=== PATIENT | male | born 1990 | race Caucasian/White ===

== ENCOUNTER 2016-05-25 23:17 | Inpatient (IN) | payer MEDICARE, OTHER ==
[~2016-05-25 23:17] MED LIST: NORC5TAB PO; SENO8.6T10 PO; [UNRECOGNIZED DRUG - REMARK]
[2016-05-26 01:46] LABS: BASO # 0.1 K/mm3 (0.0-0.2); EOS % 0.4 % (0.0-3.0); LARGE UNSTAINED CELL # 0.2 K/mm3 (0.0-0.4); LARGE UNSTAINED CELL % 1.8 % (0.0-4.0); LYMPH # 1.5 K/mm3 (1.5-6.5); LYMPH % 9.8 % (24.0-44.0); MEAN CORPUSCULAR HEMOGLOBIN 27.7 pg (27.0-33.0); MEAN CORPUSCULAR HGB CONC 33.9 g/dl (32.0-36.5); MEAN CORPUSCULAR VOLUME 81.7 fl (80.0-96.0); MONO # 1.2 K/mm3 (0.0-0.8); MONO % 8.7 % (0.0-5.0); NEUTROPHILS # 10.5 K/mm3 (1.8-7.7); NEUTROPHILS % 78.3 % (36.0-66.0); PLATELET COUNT, AUTOMATED 248 k/mm3 (150-450); RED CELL DISTRIBUTION WIDTH 14.1 % (11.5-14.5); WHITE BLOOD COUNT 13.4 K/mm3 (4.0-10.0)
[2016-05-26] MEDS ORDERED: KETOROLAC 30 MG/ML VIAL (J1885) As Ordered ONE (01:49)
[2016-05-26] MEDS ORDERED: ONDANSETRON 4MG/2ML VIAL (J2405) As Ordered ONE (01:49)
[2016-05-26 01:59] LABS: ALBUMIN 3.9 GM/DL (3.2-5.2); ALBUMIN/GLOBULIN RATIO 0.95 (1.00-1.93); ALKALINE PHOSPHATASE 52 U/L (45-117); ALT/SGPT 47 U/L (12-78); AMYLASE 33 U/L (25-115); ANION GAP 10 MEQ/L (8-16); AST/SGOT 25 U/L (15-37); BILIRUBIN,DIRECT 0.2 MG/DL (0.0-0.2); BILIRUBIN,TOTAL 0.9 MG/DL (0.2-1.0); BLOOD UREA NITROGEN 8 MG/DL (7-18); CALCIUM LEVEL 8.7 MG/DL (8.5-10.1); CARBON DIOXIDE LEVEL 23 MEQ/L (21-32); CHLORIDE LEVEL 106 MEQ/L (98-107); CREATININE FOR GFR 0.64 MG/DL (0.70-1.30); GLOMERULAR FILTRATION RATE > 60.0 (>60); GLUCOSE, FASTING 109 MG/DL (70-105); POTASSIUM SERUM 3.7 MEQ/L (3.5-5.1); SODIUM LEVEL 139 MEQ/L (136-145)
[2016-05-26] MEDS ORDERED: ISOVUE-370 76% 100ML VIAL (Q9967) As Ordered ONE (03:37)
--- NOTE | 2016-05-26 04:50 | REPUSA ---
CLINICAL HISTORY: Abdominal pain. TECHNIQUE: Multiple axial, sagittal and coronal CT images were obtained through the abdomen and pelvi s after administration of intravenous contrast material. COMMENTS: Comparison is made to the prior exam performed on 04/25/2016. Again are noted the changes from prior partial colectomy. Unremarkable left lower quadrant colostomy. Interval appearance of significant diffuse skin thickening to the right lateral aspect of the colosto my. Adjacent subcutaneous fat stranding with multiple subcutaneous abnormal loculated fluid collectio ns. The largest measures 7.2x3.1 cm. Findings are suggestive of multifocal seromas/abscess formation. This needs clinical evaluation and further assessment. The liver is mildly enlarge or decrease attenuation without mass or defect. There is no intra or extr ahepatic biliary ductal dilatation. The spleen is normal. The gallbladder is within normal limits. Th e pancreas is of normal contour and attenuation characteristics. There is no evidence of adrenal mass . Both kidneys demonstrate prompt and equal nephrograms. The kidneys are normal in size, shape and conf iguration. There is no evidence of renal or ureteral mass. No renal or ureteral calculi are identifie d. There is no hydroureter or hydronephrosis. No evidence for appendicitis. There is no bowel wall thickening. No evidence for small or large daniela l obstruction. There is no evidence of abdominal ascites or lymphadenopathy. There is no evidence of intrinsic or extrinsic bladder mass. There is no pelvic ascites or lymphadeno micheal. Images of the lung bases show no evidence of pleural or parenchymal mass. There are no pleural effusi ons. The bony structures are free of lytic or blastic lesions. Multilevel degenerative changes are seen in volving the thoracolumbar spine. Scattered calcifications are seen involving the aorta and major bran ches compatible with atherosclerosis. Absent right femur. IMPRESSION: No change in hepatomegaly with fatty liver infiltration. Again are noted the changes from prior partial colectomy. Unremarkable left lower quadrant colostomy. Interval appearance of diffuse subcutaneous fat stranding of the anterior abdominal wall suspicious f or cellulitis. Multiple subcutaneous fluid collections are adjacent in the subcutaneous fat of the anterior abdomina l wall to the right lateral aspect of the left colostomy opening. Findings may represent seromas vers us multifocal abscesses. Smaller collections are noted to the left lateral aspect of the colostomy. T he above-described collections are limited to the subcutaneous fat of the anterior abdominal without intra-abdominal extension. Findings were not present on prior exam. Thank you for your kind referral of this patient.
[2016-05-26] MEDS ORDERED: cefTRIAXone SOD 1 GM VIAL (J0696) As Ordered ONE (05:40)
[2016-05-26] MEDS ORDERED: MORPHINE 2 MG/ML 1ML SYRINGE IV PRN (09:00)
[2016-05-26] MEDS ORDERED: MORPHINE 4 MG/ML 1ML SYRINGE IV PRN (09:00)
[2016-05-26] MEDS ORDERED: zolPIDEM TARTRATE 10MG TAB PO PRN (09:00)
[2016-05-26] MEDS ORDERED: PERCOCET 5MG/325MG TAB PO PRN ×2 (09:00)
[2016-05-26] MEDS ORDERED: PERCOCET 5MG/325MG TAB As Ordered ONE (11:19)
[2016-05-26] MEDS: LR 1,000 ML IV SCH ×3 (11:25→21:34)
[2016-05-26 11:54] VITALS: BP 101/55
[2016-05-26] MEDS ORDERED: CIPROFLOXACIN 400 MG in APPROPRIATE DILUENT 1 EA IV SCH (13:00)
[2016-05-26] MEDS ORDERED: PANTOPRAZOLE 40MG TAB (PROTONIX) As Ordered ONE (13:08)
[2016-05-26] MEDS ORDERED: CIPROFLOXACIN/D5W 400 MG/200 ML BAG (J0744) As Ordered ONE (13:09)
[2016-05-26] MEDS: PANTOPRAZOLE 40MG TAB (PROTONIX) PO SCH (13:10)
--- NOTE | 2016-05-26 13:45 | EDDOCDS ---
Physician Documentation [facility] Name: Crispin Winters Age: 26 yrs Sex: Male : 1990 Arrival Date: 05/25/2016 Time: 23:17 Bed Admit Hold Private MD: Franklin Lucas Disposition: 05/26/16 08:33 Hospitalization ordered by Konstantin Azar for Inpatient Admission. Preliminary diagnosis is Cellulitis of abdominal wall - with multiple abscesses. - Bed requested for 4 Ferney. - Status is Inpatient Admission. pml - Condition is Stable. - Problem is an acute exacerbation. - Symptoms have improved. Historical: - Allergies: no known allergies; - Home Meds: 1. none - PMHx: none; - PSHx: legs amputated; Hernia repair; right arm surgery; Colostomy Construction; - Social history: Smoking status: Patient states was never smoker of tobacco. No barriers to communication noted, The patient speaks fluent Georgian. - Family history: Not pertinent, No immediate family members are acutely ill. - : The pt / caregiver states he / she is not on anticoagulants. Home medication list is obtained from the patient. - Exposure Risk Screening:: None identified. Vital Signs: 05/25 23:18 BP 102 / 73; Pulse 135; Resp 18 S; Temp 100.6(O); Pulse Ox 92% on R/A; Weight 106.59 kg gr2 / 234.99 lbs (R); Pain 4/10; 05/26 02:52 Pain 4/10; mlc 04:51 BP 116 / 60; Pulse 102; Resp 18; Temp 99.0; Pulse Ox 96% on R/A; Pain 5/10; mlc 09:25 BP 118 / 63; Pulse 92; Resp 18; Temp 99.1(TE); Pulse Ox 98% on R/A; Pain 5/10; ct3 MDM: 01:39 NS 0.9% 1000 ml IV at bolus once ordered. mm11 01:39 Ondansetron 4 mg IVP once ordered. mm11 01:39 ketorolac 30 mg IVP once ordered. mm11 01:39 IV Saline Lock ordered. mm11 01:39 Undress patient appropriately for examination ordered. mm11 01:40 -Blood Culture Ordered. EDMS 01:40 Amylase Ordered. EDMS 01:40 Basic Metabolic Profile Ordered. EDMS 01:40 CBC with Diff Ordered. EDMS 01:40 Lipase Ordered. EDMS 01:40 Liver Profile Ordered. EDMS 01:40 Lactic Acid (Melara tube on ice) Ordered. EDMS 01:40 NOTHING BY MOUTH+DIET ordered. EDMS 01:45 C REACTIVE PROTEIN QUANTITATIV Ordered. EDMS 02:38 Basic Metabolic Profile Reviewed. mm11 02:38 CBC with Diff Reviewed. mm11 02:38 Lipase Reviewed. mm11 02:38 Liver Profile Reviewed. mm11 02:38 C REACTIVE PROTEIN QUANTITATIV Reviewed. mm11 02:38 Amylase Reviewed. mm11 02:39 CT ABD & PELVIS: IV Contrast Only Ordered. EDMS 03:18 Lactic Acid (Melara tube on ice) Reviewed. mm11 04:56 Financial registration complete. hs2 05:09 CT ABD & PELVIS: IV Contrast Only Reviewed. mm11 05:25 cefTRIAXone 1 grams IVPB once over 30 mins; dilute in 50mL of NS or D5W ordered. mm11 05:26 NS 0.9% 1000 ml IV at 100 mL/hr continuous ordered. mm11 06:41 [facility] Payment Agreement was scanned into [employer] and attached to record. gjb 08:34 BED REQUEST+ADM ordered. EDMS 08:57 Admission / Observation Status ordered. EDMS 08:57 REGULAR DIET ordered. EDMS 08:59 ABCESS DRAIN (NEEDLE PLACE) US Ordered. EDMS 10:39 T-Sheet-- Draft Copy was scanned into [employer] and attached to record. se Administered Medications: 01:58 Drug: ketorolac 30 mg [ketorolac 30 mg/mL (1 mL) injection solution (1 mL)] Route: IVP; mlc Site: left antecubital; 02:52 Follow up: Pain 4/10 Adult; Response: Pain is decreased mlc 01:59 Drug: NS 0.9% 1000 ml [sodium chloride 0.9 % intravenous solution] Route: IV; Rate: mlc bolus; Site: left antecubital; 01:59 Drug: Ondansetron 4 mg [ondansetron HCl 2 mg/mL intravenous solution (2 mL)] Route: mlc IVP; Site: left antecubital; 02:51 Follow up: Response: Nausea is resolved mlc 06:31 Drug: cefTRIAXone 1 grams [ceftriaxone 1 gram solution for injection] Route: IVPB; mlc Infused Over: 30 mins; Site: left wrist; 07:10 Follow up: IV Status: Completed infusion; IV Intake: 50ml pml 06:31 Drug: NS 0.9% 1000 ml [sodium chloride 0.9 % intravenous solution] Route: IV; Rate: 100 mlc mL/hr; Site: left wrist; Signatures: Dispatcher [employer] Keiko Frederick RN RN mcp Maynard, Matthew, DO DO mm11 Ema Willis RN RN pml Booth, Mandy, RN RN mlc Sourwine, Sharon, RN RN [facility] Ann Younger, Reg Reg hs2 [facility] The chart was reviewed and I authenticate all verbal orders and agree with the evaluation and treatment provided.Corrections: (The following items were deleted from the chart) 01:47 01:41 C REACTIVE PROTEIN QUANTITATIV+LAB ordered. EDMS EDMS Attachments: 06:41 [facility] Payment Agreement [facility] 10:39 T-Sheet-- Draft Copy [facility] MTDD
--- NOTE | 2016-05-26 13:46 | EDDOCDS ---
Nurse's Notes [facility] Name: Crispin Winters Age: 26 yrs Sex: Male : 1990 Arrival Date: 05/25/2016 Time: 23:17 Bed Admit Hold Private MD: Franklin Lucas Diagnosis: Cellulitis of abdominal wall-with multiple abscesses Presentation: 05/25 23:21 Presenting complaint: Patient states: Headache, stomach hurts, can't keep anything down mcp since yesterday. Adult Sepsis Screening: The patient does not have new or worsening altered mentation. Patient's respiratory rate is less than 22. Systolic blood pressure is greater than 100. Patient has a qSOFA score of 0- Negative Sepsis Screen. Suicide/Homicide risk assessment- the patient denies having any suicidal and/or homicidal ideations and does not present with any other emotional, behavioral or mental health complaints. Status: Patient is not a food service aide or dependent. Transition of care: patient was not received from another setting of care. 23:21 Acuity: ARAVIND Level 3 [facility] 23:21 Method Of Arrival: Wheelchair [facility] Triage Assessment: 23:23 General: Appears in no apparent distress. Pain: Location: abdomen Pain currently is 5 mcp out of 10 on a pain scale. HIV screening NA for this visit Offered previously. Neurological: No deficits noted. Respiratory: Airway is patent Respiratory effort is even, unlabored. GI: Reports nausea, vomiting. Derm: Skin is pink, warm & dry. Historical: - Allergies: no known allergies; - Home Meds: 1. none - PMHx: none; - PSHx: legs amputated; Hernia repair; right arm surgery; Colostomy Construction; - Social history: Smoking status: Patient states was never smoker of tobacco. No barriers to communication noted, The patient speaks fluent Greenlandic. - Family history: Not pertinent, No immediate family members are acutely ill. - : The pt / caregiver states he / she is not on anticoagulants. Home medication list is obtained from the patient. - Exposure Risk Screening:: None identified. Screenin/08 01:01 Screening information is obtained from the patient. Fall risk: No risks identified. mlc Assistance ADL's: requires no assistance with activities of daily living. Abuse/DV Screen: The patient / caregiver reports he/she is: not in a situation that causes fear, pain or injury. Nutritional screening: No deficits noted. home support is adequate. 13:42 Advance Directives: Currently, there is no health care proxy. pml Assessment: 01:01 General: Appears in no apparent distress, comfortable, Behavior is cooperative. Pain: mlc Location: right lower quadrant, headache. Neurological: Level of Consciousness is awake, alert, Oriented to person, place, time. Respiratory: Airway is patent Respiratory effort is even, unlabored, Respiratory pattern is regular. GI: Abdomen is obese, Colostomy site is intact. Bowel sounds present X 4 quads. Abd is soft X 4 quads Abd is tender to palpation in right lower quadrant Reports nausea, vomiting, intolerance of food, intolerance of fluids. Derm: Skin is red, on right lower quadrant and left lower quadrant. 01:59 Reassessment: Patient appears in no apparent distress at this time. IV fluids infusing mlc per order. resp easy/unlabored. 02:52 Reassessment: Patient appears in no apparent distress at this time. pt reports decrease mlc in headache, IV fluids infusing per order. . 03:44 Reassessment: Patient appears in no apparent distress at this time. pt taken to and mlc returned from CT, tolerated well. resp easy/unlabored. . 04:46 General: Appears in no apparent distress, comfortable, to be sleeping. Respiratory: mlc Airway is patent Respiratory effort is even, unlabored, Respiratory pattern is regular. 06:32 Reassessment: Patient appears in no apparent distress at this time. IV fluids infusing mlc per order, resp easy/unlabored. . 07:09 General: Appears in no apparent distress, Behavior is appropriate for age, cooperative. pml Pain: Location: abdomen Pain currently is 4 out of 10 on a pain scale. Neurological: Level of Consciousness is awake, alert, Oriented to person, place, time. Cardiovascular: Capillary refill < 3 seconds. Respiratory: Airway is patent Respiratory effort is even, unlabored, Respiratory pattern is regular. GI: Abdomen is obese, is intact. Bowel sounds present X 4 quads. Derm: Skin is pink, warm & dry. redness to bilateral lower abdomen. 08:14 General: resting on stretcher, no apparent distress. resps easy and unlabored. awaiting pml eval by surgeon. 08:45 General: MD Azar in to see patient. pml 09:16 General: Appears in no apparent distress, comfortable, Behavior is appropriate for age, pml cooperative. Pain: Location: left lower quadrant and right lower quadrant Pain currently is 5 out of 10 on a pain scale. Neurological: Level of Consciousness is awake, alert, Oriented to person, place, time. Cardiovascular: Capillary refill < 3 seconds. Respiratory: Airway is patent Respiratory effort is even, unlabored. Derm: Skin is pink, warm & dry. 09:28 General: Pt tolerating diet tray provided. voices no complaints. resps easy and pml unlabored, skin.. 10:23 General: Appears in no apparent distress, Behavior is appropriate for age, cooperative. pml Pain: Location: left lower quadrant and right lower quadrant. Neurological: Level of Consciousness is awake, alert, Oriented to person, place, time. Respiratory: Airway is patent Respiratory effort is even, unlabored. Derm: Skin is pink, warm & dry. 10:59 General: resting on stretcher, eyes closed, resps easy and unlabored, skin p/w/d. pml 11:12 General: report to admission AILYN oquendo. pml Vital Signs: 05/25 23:18 BP 102 / 73; Pulse 135; Resp 18 S; Temp 100.6(O); Pulse Ox 92% on R/A; Weight 106.59 kg gr2 (R); Pain 4/10; 05/26 02:52 Pain 4/10; mlc 04:51 BP 116 / 60; Pulse 102; Resp 18; Temp 99.0; Pulse Ox 96% on R/A; Pain 5/10; mlc 09:25 BP 118 / 63; Pulse 92; Resp 18; Temp 99.1(TE); Pulse Ox 98% on R/A; Pain 5/10; ct3 Vitals: 05/25 23:18 Log In Time: May 25, 2016 at 23:18. gr2 ED Course: 23:18 Patient visited by Glenny Carl. gr2 23:18 Jerod Saba is Private Physician. gr2 23:18 Franklin Lucas is Private Physician. gr2 23:18 Patient moved to Waiting gr2 23:20 Patient visited by Glenny Carl. gr2 23:20 Patient moved to Pre RCE gr2 23:21 Triage Initiated [facility] 23:23 Patient visited by Keiko Miller RN. [facility] 05/26 00:31 Cecile Dixon,AILYN is Primary Nurse. may 00:31 Patient moved to May 00:40 Pt greeted and oriented to ED. Patient advised of names of staff involved in care, [facility] location of call raya, wait times and NPO status. Patient has correct armband on for positive identification. Placed in gown. Bed in low position. Call light in reach. Side rails up X2. 00:41 Patient visited by Andrew Eason PCA. v 01:01 Inserted saline lock: 20 gauge in left antecubital area and blood collected. The [facility] patient tolerated the procedure well. 01:03 Patient visited by Cecile Dixon RN. mlc 01:31 Mohamud Quintanilla DO is Attending Physician. mm11 01:31 Patient visited by Mohamud Quintanilla DO. mm11 01:38 Patient visited by Mohamud Quintanilla DO. mm11 02:00 Patient visited by Cecile Dixon RN. mlc 02:43 Lactic Acid (Melara tube on ice) Sent. mlc 02:43 -Blood Culture Sent. mlc 02:52 Patient visited by Cecile Dixon RN. mlc 03:45 Patient visited by Cecile Dixon RN. mlc 04:51 The patient / caregiver is instructed regarding the plan of care and ED course. mlc 04:53 Patient visited by Ceclie Dixon RN. mlc 04:54 CT ABD & PELVIS: IV Contrast Only Returned. EDMS 05:44 Patient visited by Mohamud Quintanilla DO. mm11 06:31 Discontinued IV lock intact, bleeding controlled, pressure dressing applied, No mlc redness/swelling at site. IV site infiltrated. 06:31 Inserted saline lock: 22 gauge in left hand by Althea Vyas, nursing supervisor [employer]. mlc 06:32 Patient visited by Cecile Dixon RN. mlc 06:41 [facility] Payment Agreement was scanned into [employer] and attached to record. gjb 07:11 Patient visited by Ema Willis,AILYN. pml 07:29 Ema Willis,RN is Primary Nurse. pml 08:14 Patient visited by Ema Willis,AILYN. pml 08:33 Konstantin Azar MD is Hospitalizing Provider. mm11 09:20 Patient moved to Admit Hold [facility] 09:25 Diet: Patient given regular meal. ct3 09:26 Patient visited by Chela Torres PCA. ct3 09:29 Patient visited by Ema Willis,AILYN. pml 10:24 Patient visited by Ema Willis,AILYN. pml 10:39 T-Sheet-- Draft Copy was scanned into [employer] and attached to record. [facility] 10:59 Patient visited by Ema Willis,AILYN. pml 11:09 Patient moved to I [facility] 11:12 Patient visited by Ema iWllis RN. pml 11:45 Primary Nurse role handed off by Cecile Dixon RN ac 12:25 Patient moved to Admit Hold [facility] 13:43 No procedures done that require assistance. pml Administered Medications: 01:58 Drug: ketorolac 30 mg [ketorolac 30 mg/mL (1 mL) injection solution (1 mL)] Route: IVP; mlc Site: left antecubital; 02:52 Follow up: Pain 4/10 Adult; Response: Pain is decreased [facility] 01:59 Drug: NS 0.9% 1000 ml [sodium chloride 0.9 % intravenous solution] Route: IV; Rate: mlc bolus; Site: left antecubital; 01:59 Drug: Ondansetron 4 mg [ondansetron HCl 2 mg/mL intravenous solution (2 mL)] Route: mlc IVP; Site: left antecubital; 02:51 Follow up: Response: Nausea is resolved [facility] 06:31 Drug: cefTRIAXone 1 grams [ceftriaxone 1 gram solution for injection] Route: IVPB; mlc Infused Over: 30 mins; Site: left wrist; 07:10 Follow up: IV Status: Completed infusion; IV Intake: 50ml [facility] 06:31 Drug: NS 0.9% 1000 ml [sodium chloride 0.9 % intravenous solution] Route: IV; Rate: 100 mlc mL/hr; Site: left wrist; Intake: 07:10 IV: 50.00ml; Total: 50.00ml. pml Order Results: Lab Order: Amylase; SPEC'M 05/26/16 01:00 Test: AMYLASE; Value: 33; Range: 25-115; Units: U/L; Status: F Lab Order: Basic Metabolic Profile; SPEC'M 05/26/16 01:00 Test: GLUCOSE, FASTING; Value: 109; Range: 70-105; Abnormal: Above high normal; Units: MG/DL; Status: F Test: BLOOD UREA NITROGEN; Value: 8; Range: 7-18; Units: MG/DL; Status: F Test: CREATININE FOR GFR; Value: 0.64; Range: 0.70-1.30; Abnormal: Below low normal; Units: MG/DL; Status: F Test: GLOMERULAR FILTRATION RATE; Value: > 60.0; Range: >60; Status: F Test: SODIUM LEVEL; Value: 139; Range: 136-145; Units: MEQ/L; Status: F Test: POTASSIUM SERUM; Value: 3.7; Range: 3.5-5.1; Units: MEQ/L; Status: F Test: CHLORIDE LEVEL; Value: 106; Range: 98-107; Units: MEQ/L; Status: F Test: CARBON DIOXIDE LEVEL; Value: 23; Range: 21-32; Units: MEQ/L; Status: F Test: ANION GAP; Value: 10; Range: 8-16; Units: MEQ/L; Status: F Test: CALCIUM LEVEL; Value: 8.7; Range: 8.5-10.1; Units: MG/DL; Status: F Test Note: ; Units are mL/min/1.73 m2 Chronic Kidney Disease Staging per NKF: Stage I & II GFR >=60 Normal to Mildly Decreased Stage III GFR 30-59 Moderately Decreased Stage IV GFR 15-29 Severely Decreased Stage V GFR <15 Very Little GFR Left ESRD GFR <15 on DICE TABLE PERSON Lab Order: CBC with Diff; SPEC'M 05/26/16 01:00 Test: WHITE BLOOD COUNT; Value: 13.4; Range: 4.0-10.0; Abnormal: Above high normal; Units: K/mm3; Status: F Test: RED BLOOD COUNT; Value: 5.06; Range: 4.30-6.10; Units: M/mm3; Status: F Test: HEMOGLOBIN; Value: 14.0; Range: 14.0-18.0; Units: g/dl; Status: F Test: HEMATOCRIT; Value: 41.4; Range: 42.0-52.0; Abnormal: Below low normal; Units: %; Status: F Test: MEAN CORPUSCULAR VOLUME; Value: 81.7; Range: 80.0-96.0; Units: fl; Status: F Test: MEAN CORPUSCULAR HEMOGLOBIN; Value: 27.7; Range: 27.0-33.0; Units: pg; Status: F Test: MEAN CORPUSCULAR HGB CONC; Value: 33.9; Range: 32.0-36.5; Units: g/dl; Status: F Test: RED CELL DISTRIBUTION WIDTH; Value: 14.1; Range: 11.5-14.5; Units: %; Status: F Test: PLATELET COUNT, AUTOMATED; Value: 248; Range: 150-450; Units: k/mm3; Status: F Test: NEUTROPHILS %; Value: 78.3; Range: 36.0-66.0; Abnormal: Above high normal; Units: %; Status: F Test: LYMPH %; Value: 9.8; Range: 24.0-44.0; Abnormal: Below low normal; Units: %; Status: F Test: MONO %; Value: 8.7; Range: 0.0-5.0; Abnormal: Above high normal; Units: %; Status: F Test: EOS %; Value: 0.4; Range: 0.0-3.0; Units: %; Status: F Test: BASO %; Value: 1.0; Range: 0.0-1.0; Units: %; Status: F Test: LARGE UNSTAINED CELL %; Value: 1.8; Range: 0.0-4.0; Units: %; Status: F Test: NEUTROPHILS #; Value: 10.5; Range: 1.8-7.7; Abnormal: Above high normal; Units: K/mm3; Status: F Test: LYMPH #; Value: 1.5; Range: 1.5-6.5; Units: K/mm3; Status: F Test: MONO #; Value: 1.2; Range: 0.0-0.8; Abnormal: Above high normal; Units: K/mm3; Status: F Test: EOS #; Value: 0.0; Range: 0.0-0.50; Units: K/mm3; Status: F Test: BASO #; Value: 0.1; Range: 0.0-0.2; Units: K/mm3; Status: F Test: LARGE UNSTAINED CELL #; Value: 0.2; Range: 0.0-0.4; Units: K/mm3; Status: F Lab Order: Lipase; SPEC'M 05/26/16 01:00 Test: LIPASE; Value: 65; Range: 73-393; Abnormal: Below low normal; Units: U/L; Status: F Lab Order: Liver Profile; SPEC'M 05/26/16 01:00 Test: AST/SGOT; Value: 25; Range: 15-37; Units: U/L; Status: F Test: ALT/SGPT; Value: 47; Range: 12-78; Units: U/L; Status: F Test: ALKALINE PHOSPHATASE; Value: 52; Range: 45-117; Units: U/L; Status: F Test: BILIRUBIN,TOTAL; Value: 0.9; Range: 0.2-1.0; Units: MG/DL; Status: F Test: BILIRUBIN,DIRECT; Value: 0.2; Range: 0.0-0.2; Units: MG/DL; Status: F Test: TOTAL PROTEIN; Value: 8.0; Range: 6.4-8.2; Units: GM/DL; Status: F Test: ALBUMIN; Value: 3.9; Range: 3.2-5.2; Units: GM/DL; Status: F Test: ALBUMIN/GLOBULIN RATIO; Value: 0.95; Range: 1.00-1.93; Abnormal: Below low normal; Status: F Lab Order: Lactic Acid (Melara tube on ice); SPEC' 05/26/16 02:38 Test: LACTIC ACID LEVEL, LACTATE; Value: 1.0; Range: 0.4-2.0; Units: MMOL/L; Status: F Lab Order: C REACTIVE PROTEIN QUANTITATIV; SPEC'M 05/26/16 01:00 Test: C REACTIVE PROTEIN QUANTITATIV; Value: 9.76; Range: 0.00-0.30; Abnormal: Above high normal; Units: MG/DL; Status: F Radiology Order: CT ABD & PELVIS: IV Contrast Only Test: CT ABD & PELVIS: IV Contrast Only REASON FOR EXAMINATION: Abdomen Pain; ; CLINICAL HISTORY: Abdominal pain.; TECHNIQUE: Multiple axial, sagittal and coronal CT images were obtained through the abdomen and pelvi; s after administration of intravenous contrast material.; COMMENTS:; Comparison is made to the prior exam performed on 04/25/2016.; Again are noted the changes from prior partial colectomy. Unremarkable left lower quadrant colostomy.; ; Interval appearance of significant diffuse skin thickening to the right lateral aspect of the colosto; my. Adjacent subcutaneous fat stranding with multiple subcutaneous abnormal loculated fluid collectio; ns. The largest measures 7.2x3.1 cm. Findings are suggestive of multifocal seromas/abscess formation.; This needs clinical evaluation and further assessment.; The liver is mildly enlarge or decrease attenuation without mass or defect. There is no intra or extr; ahepatic biliary ductal dilatation. The spleen is normal. The gallbladder is within normal limits. Th; e pancreas is of normal contour and attenuation characteristics. There is no evidence of adrenal mass; .; Both kidneys demonstrate prompt and equal nephrograms. The kidneys are normal in size, shape and conf; iguration. There is no evidence of renal or ureteral mass. No renal or ureteral calculi are identifie; d. There is no hydroureter or hydronephrosis.; No evidence for appendicitis. There is no bowel wall thickening. No evidence for small or large daniela; l obstruction. There is no evidence of abdominal ascites or lymphadenopathy.; There is no evidence of intrinsic or extrinsic bladder mass. There is no pelvic ascites or lymphadeno; micheal.; Images of the lung bases show no evidence of pleural or parenchymal mass. There are no pleural effusi; ons.; The bony structures are free of lytic or blastic lesions. Multilevel degenerative changes are seen in; volving the thoracolumbar spine. Scattered calcifications are seen involving the aorta and major bran; ches compatible with atherosclerosis.; Absent right femur.; IMPRESSION:; No change in hepatomegaly with fatty liver infiltration.; Again are noted the changes from prior partial colectomy.; Unremarkable left lower quadrant colostomy.; Interval appearance of diffuse subcutaneous fat stranding of the anterior abdominal wall suspicious f; or cellulitis.; Multiple subcutaneous fluid collections are adjacent in the subcutaneous fat of the anterior abdomina; l wall to the right lateral aspect of the left colostomy opening. Findings may represent seromas vers; us multifocal abscesses. Smaller collections are noted to the left lateral aspect of the colostomy. T; he above-described collections are limited to the subcutaneous fat of the anterior abdominal without; intra-abdominal extension. Findings were not present on prior exam.; Thank you for your kind referral of this patient.; ; Outcome: 04:53 CT Study completed. [facility] 08:33 Decision to Hospitalize by Provider. mm11 13:42 Discharge Assessment: Patient awake, alert and oriented x 3. No cognitive and/or pml functional deficits noted. Patient verbalized understanding of disposition instructions. patient administered narcotics - no. The following High Risk Discharge criteria are identified: None. Admitted to Med/Surg accompanied by tech, via wheelchair, with chart. Condition: stable. Property :Personal belongings accompany Pt. 13:45 Patient left the ED. pml Signatures: Dispatcher [employer] EDKY Safia Duran RN RN kpj Newman, AILYN Dias RN, Mary, RN RN mcp Carter, Andy, GEOFFREY PSA Mohamud Soler, DO mm11 Chela Torres, [employer] ct3 Ema Willis RN RN pml Raymond, Gainslee gr2 Cecile Dixon RN RN mlc Beck, Gabriela gjb Hoffert, Sarah seh Vega, Jose, [employer] jmv KANCHAN
[2016-05-26 13:48] VITALS: BP 128/78
[2016-05-26] MEDS: metroNIDAZOLE 500 MG in APPROPRIATE DILUENT 1 EA IV SCH ×2 (14:27→21:23)
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
[2016-05-26] MEDS: AMPICILLIN SOD/SULBACTAM SOD 3 GM in D5W MINI-BAG PLUS 100 ML IV SCH ×2 (16:34→21:34)
[2016-05-26] MEDS: KETOROLAC 30 MG/ML VIAL (J1885) IV PRN (16:56)
[2016-05-26 18:00] VITALS: BP 119/58
[2016-05-26 22:00] VITALS: BP 110/55
[2016-05-27] MEDS: KETOROLAC 30 MG/ML VIAL (J1885) IV PRN (01:15)
[2016-05-27] MEDS: LR 1,000 ML IV SCH ×2 (01:15→16:53)
[2016-05-27 01:30] VITALS: BP 117/58
[2016-05-27] MEDS: AMPICILLIN SOD/SULBACTAM SOD 3 GM in D5W MINI-BAG PLUS 100 ML IV SCH ×4 (03:22→22:18)
[2016-05-27] MEDS: metroNIDAZOLE 500 MG in APPROPRIATE DILUENT 1 EA IV SCH ×3 (05:08→21:13)
[2016-05-27 06:00] VITALS: BP 113/58
[2016-05-27] MEDS: ACETAMINOPHEN TAB 650MG DOSE (2X325MG) PO PRN ×2 (06:39→17:42)
[2016-05-27 06:57] LABS: MEAN CORPUSCULAR HEMOGLOBIN 27.6 pg (27.0-33.0); MEAN CORPUSCULAR HGB CONC 33.5 g/dl (32.0-36.5); MEAN CORPUSCULAR VOLUME 82.3 fl (80.0-96.0); RED CELL DISTRIBUTION WIDTH 13.2 % (11.5-14.5); WHITE BLOOD COUNT 8.1 K/mm3 (4.0-10.0)
[2016-05-27 07:21] LABS: ANION GAP 8 MEQ/L (8-16); BLOOD UREA NITROGEN 8 MG/DL (7-18); CALCIUM LEVEL 8.3 MG/DL (8.5-10.1); CARBON DIOXIDE LEVEL 24 MEQ/L (21-32); CHLORIDE LEVEL 108 MEQ/L (98-107); CREATININE FOR GFR 0.45 MG/DL (0.70-1.30); GLOMERULAR FILTRATION RATE > 60.0 (>60); GLUCOSE, FASTING 94 MG/DL (70-105); POTASSIUM SERUM 3.8 MEQ/L (3.5-5.1); SODIUM LEVEL 140 MEQ/L (136-145)
[2016-05-27] MEDS: PANTOPRAZOLE 40MG TAB (PROTONIX) PO SCH (09:04)
[2016-05-27] MEDS ORDERED: LIDOCAINE 1% MDV 20ML VIAL As Ordered ONE (10:24)
[2016-05-27 14:00] VITALS: BP 120/74
--- NOTE | 2016-05-27 17:36 | REP ---
ULTRASOUND GUIDED ABSCESS DRAIN: The procedure was performed under the direct supervision of Dr. Singleton. The patient has a history of two subcutaneous fluid collections adjacent in the subcutaneous fat of the anterior abdominal wall to the right lateral aspect of the left colostomy opening seen on a previous CT scan 05/26/2016. The two abscess collections were localized using ultrasound guidance. The skin was prepped and draped in a sterile fashion. 1% Xylocaine was used as a local anesthetic. The more superior collection was addressed first. Using ultrasound guidance a #10-Anguillan skater APDL catheter was inserted using trocar technique. 25 mL of low viscosity red-colored fluid was withdrawn and sent to the lab. The catheter was affixed to the skin. The more inferior collection was then addressed. Using ultrasound guidance a #10-Anguillan skater APDL catheter was inserted using trocar technique. 10 mL of desai purulent fluid was withdrawn and sent to the lab. The cavity was then flushed with four 5 mL aliquots of sterile saline. A catheter was affixed to the skin. Sterile dressings were applied and the catheters were connected to gravity drainage bags. The patient tolerated the procedure well and there were no immediate complications. Reviewed by LUMA Hernandez 05/28/2016 11:10 AEdited and Signed by Mike Singleton MD 05/28/2016 12:19 P
[2016-05-27 18:00] VITALS: BP 132/65
[2016-05-27] MEDS ORDERED: ONDANSETRON 4MG/2ML VIAL (J2405) IV PRN (18:00)
[2016-05-27 22:00] VITALS: BP 132/76
[2016-05-28 02:00] VITALS: BP 103/54
[2016-05-28] MEDS: AMPICILLIN SOD/SULBACTAM SOD 3 GM in D5W MINI-BAG PLUS 100 ML IV SCH ×2 (03:37→09:58)
[2016-05-28] MEDS: LR 1,000 ML IV SCH ×2 (03:37→08:53)
[2016-05-28] MEDS: metroNIDAZOLE 500 MG in APPROPRIATE DILUENT 1 EA IV SCH (05:15)
[2016-05-28 06:00] VITALS: BP 107/57
[2016-05-28 06:50] LABS: MEAN CORPUSCULAR HEMOGLOBIN 28.2 pg (27.0-33.0); RED CELL DISTRIBUTION WIDTH 12.9 % (11.5-14.5); WHITE BLOOD COUNT 3.9 K/mm3 (4.0-10.0)
[2016-05-28 07:14] LABS: ANION GAP 11 MEQ/L (8-16); BLOOD UREA NITROGEN 5 MG/DL (7-18); CALCIUM LEVEL 8.4 MG/DL (8.5-10.1); CARBON DIOXIDE LEVEL 24 MEQ/L (21-32); CHLORIDE LEVEL 110 MEQ/L (98-107); CREATININE FOR GFR 0.43 MG/DL (0.70-1.30); GLOMERULAR FILTRATION RATE > 60.0 (>60); GLUCOSE, FASTING 94 MG/DL (70-105); POTASSIUM SERUM 3.9 MEQ/L (3.5-5.1); SODIUM LEVEL 145 MEQ/L (136-145)
[2016-05-28] MEDS: PANTOPRAZOLE 40MG TAB (PROTONIX) PO SCH (09:57)
[2016-05-28] MEDS ORDERED: FLAG500T PO (13:03)
[2016-05-28] MEDS ORDERED: AUGM875T27 PO (13:03)
--- NOTE | 2016-05-28 14:46 | EDDOCDS ---
Physician Documentation [facility] Name: Crispin Winters Age: 26 yrs Sex: Male : 1990 Arrival Date: 05/25/2016 Time: 23:17 Bed Admit Hold Private MD: Franklin Lucas Disposition: 05/26/16 08:33 Hospitalization ordered by Konstantin Azar for Inpatient Admission. Preliminary diagnosis is Cellulitis of abdominal wall - with multiple abscesses. - Bed requested for 4 Clutier. - Status is Inpatient Admission. pml - Condition is Stable. - Problem is an acute exacerbation. - Symptoms have improved. Historical: - Allergies: no known allergies; - Home Meds: 1. none - PMHx: none; - PSHx: legs amputated; Hernia repair; right arm surgery; Colostomy Construction; - Social history: Smoking status: Patient states was never smoker of tobacco. No barriers to communication noted, The patient speaks fluent Divehi. - Family history: Not pertinent, No immediate family members are acutely ill. - : The pt / caregiver states he / she is not on anticoagulants. Home medication list is obtained from the patient. - Exposure Risk Screening:: None identified. Vital Signs: 05/25 23:18 BP 102 / 73; Pulse 135; Resp 18 S; Temp 100.6(O); Pulse Ox 92% on R/A; Weight 106.59 kg gr2 / 234.99 lbs (R); Pain 4/10; 05/26 02:52 Pain 4/10; mlc 04:51 BP 116 / 60; Pulse 102; Resp 18; Temp 99.0; Pulse Ox 96% on R/A; Pain 5/10; mlc 09:25 BP 118 / 63; Pulse 92; Resp 18; Temp 99.1(TE); Pulse Ox 98% on R/A; Pain 5/10; ct3 MDM: 01:39 NS 0.9% 1000 ml IV at bolus once ordered. mm11 01:39 Ondansetron 4 mg IVP once ordered. mm11 01:39 ketorolac 30 mg IVP once ordered. mm11 01:39 IV Saline Lock ordered. mm11 01:39 Undress patient appropriately for examination ordered. mm11 01:40 -Blood Culture Ordered. EDMS 01:40 Amylase Ordered. EDMS 01:40 Basic Metabolic Profile Ordered. EDMS 01:40 CBC with Diff Ordered. EDMS 01:40 Lipase Ordered. EDMS 01:40 Liver Profile Ordered. EDMS 01:40 Lactic Acid (Melara tube on ice) Ordered. EDMS 01:40 NOTHING BY MOUTH+DIET ordered. EDMS 01:45 C REACTIVE PROTEIN QUANTITATIV Ordered. EDMS 02:38 Basic Metabolic Profile Reviewed. mm11 02:38 CBC with Diff Reviewed. mm11 02:38 Lipase Reviewed. mm11 02:38 Liver Profile Reviewed. mm11 02:38 C REACTIVE PROTEIN QUANTITATIV Reviewed. mm11 02:38 Amylase Reviewed. mm11 02:39 CT ABD & PELVIS: IV Contrast Only Ordered. EDMS 03:18 Lactic Acid (Melara tube on ice) Reviewed. mm11 04:56 Financial registration complete. hs2 05:09 CT ABD & PELVIS: IV Contrast Only Reviewed. mm11 05:25 cefTRIAXone 1 grams IVPB once over 30 mins; dilute in 50mL of NS or D5W ordered. mm11 05:26 NS 0.9% 1000 ml IV at 100 mL/hr continuous ordered. mm11 06:41 [facility] [place] Agreement was scanned into [employer] and attached to record. gjb 08:34 BED REQUEST+ADM ordered. EDMS 08:57 Admission / Observation Status ordered. EDMS 08:57 REGULAR DIET ordered. EDMS 08:59 ABCESS DRAIN (NEEDLE PLACE) US Ordered. EDMS 10:39 T-Sheet-- Draft Copy was scanned into [employer] and attached to record. se Administered Medications: 01:58 Drug: ketorolac 30 mg [ketorolac 30 mg/mL (1 mL) injection solution (1 mL)] Route: IVP; mlc Site: left antecubital; 02:52 Follow up: Pain 4/10 Adult; Response: Pain is decreased mlc 01:59 Drug: NS 0.9% 1000 ml [sodium chloride 0.9 % intravenous solution] Route: IV; Rate: mlc bolus; Site: left antecubital; 01:59 Drug: Ondansetron 4 mg [ondansetron HCl 2 mg/mL intravenous solution (2 mL)] Route: mlc IVP; Site: left antecubital; 02:51 Follow up: Response: Nausea is resolved mlc 06:31 Drug: cefTRIAXone 1 grams [ceftriaxone 1 gram solution for injection] Route: IVPB; mlc Infused Over: 30 mins; Site: left wrist; 07:10 Follow up: IV Status: Completed infusion; IV Intake: 50ml pml 06:31 Drug: NS 0.9% 1000 ml [sodium chloride 0.9 % intravenous solution] Route: IV; Rate: 100 mlc mL/hr; Site: left wrist; Signatures: Dispatcher [employer] Keiko Frederick RN RN mcp Maynard, Matthew, DO DO mm11 Ema Willis RN RN pml Booth, Mandy, RN RN mlc Sourwine, Sharon, RN RN [facility] Dios Ann Younger, Reg Reg hs2 Zackery, [facility] The chart was reviewed and I authenticate all verbal orders and agree with the evaluation and treatment provided.Corrections: (The following items were deleted from the chart) 01:47 01:41 C REACTIVE PROTEIN QUANTITATIV+LAB ordered. EDMS EDMS Attachments: 06:41 [facility] [place] Agreement robin 10:39 T-Sheet-- Draft Copy [facility] Chart Complete MTDD
--- NOTE | 2016-05-28 14:46 | EDDOCDS ---
Nurse's Notes [facility] Name: Crispin Winters Age: 26 yrs Sex: Male : 1990 Arrival Date: 05/25/2016 Time: 23:17 Bed Admit Hold Private MD: Franklin Lucas Diagnosis: Cellulitis of abdominal wall-with multiple abscesses Presentation: 05/25 23:21 Presenting complaint: Patient states: Headache, stomach hurts, can't keep anything down mcp since yesterday. Adult Sepsis Screening: The patient does not have new or worsening altered mentation. Patient's respiratory rate is less than 22. Systolic blood pressure is greater than 100. Patient has a qSOFA score of 0- Negative Sepsis Screen. Suicide/Homicide risk assessment- the patient denies having any suicidal and/or homicidal ideations and does not present with any other emotional, behavioral or mental health complaints. Status: Patient is not a human services supervisor or dependent. Transition of care: patient was not received from another setting of care. 23:21 Acuity: ARAVIND Level 3 [facility] 23:21 Method Of Arrival: Wheelchair [facility] Triage Assessment: 23:23 General: Appears in no apparent distress. Pain: Location: abdomen Pain currently is 5 mcp out of 10 on a pain scale. HIV screening NA for this visit Offered previously. Neurological: No deficits noted. Respiratory: Airway is patent Respiratory effort is even, unlabored. GI: Reports nausea, vomiting. Derm: Skin is pink, warm & dry. Historical: - Allergies: no known allergies; - Home Meds: 1. none - PMHx: none; - PSHx: legs amputated; Hernia repair; right arm surgery; Colostomy Construction; - Social history: Smoking status: Patient states was never smoker of tobacco. No barriers to communication noted, The patient speaks fluent Greek. - Family history: Not pertinent, No immediate family members are acutely ill. - : The pt / caregiver states he / she is not on anticoagulants. Home medication list is obtained from the patient. - Exposure Risk Screening:: None identified. Screenin/08 01:01 Screening information is obtained from the patient. Fall risk: No risks identified. mlc Assistance ADL's: requires no assistance with activities of daily living. Abuse/DV Screen: The patient / caregiver reports he/she is: not in a situation that causes fear, pain or injury. Nutritional screening: No deficits noted. home support is adequate. 13:42 Advance Directives: Currently, there is no health care proxy. pml Assessment: 01:01 General: Appears in no apparent distress, comfortable, Behavior is cooperative. Pain: mlc Location: right lower quadrant, headache. Neurological: Level of Consciousness is awake, alert, Oriented to person, place, time. Respiratory: Airway is patent Respiratory effort is even, unlabored, Respiratory pattern is regular. GI: Abdomen is obese, Colostomy site is intact. Bowel sounds present X 4 quads. Abd is soft X 4 quads Abd is tender to palpation in right lower quadrant Reports nausea, vomiting, intolerance of food, intolerance of fluids. Derm: Skin is red, on right lower quadrant and left lower quadrant. 01:59 Reassessment: Patient appears in no apparent distress at this time. IV fluids infusing mlc per order. resp easy/unlabored. 02:52 Reassessment: Patient appears in no apparent distress at this time. pt reports decrease mlc in headache, IV fluids infusing per order. . 03:44 Reassessment: Patient appears in no apparent distress at this time. pt taken to and mlc returned from CT, tolerated well. resp easy/unlabored. . 04:46 General: Appears in no apparent distress, comfortable, to be sleeping. Respiratory: mlc Airway is patent Respiratory effort is even, unlabored, Respiratory pattern is regular. 06:32 Reassessment: Patient appears in no apparent distress at this time. IV fluids infusing mlc per order, resp easy/unlabored. . 07:09 General: Appears in no apparent distress, Behavior is appropriate for age, cooperative. pml Pain: Location: abdomen Pain currently is 4 out of 10 on a pain scale. Neurological: Level of Consciousness is awake, alert, Oriented to person, place, time. Cardiovascular: Capillary refill < 3 seconds. Respiratory: Airway is patent Respiratory effort is even, unlabored, Respiratory pattern is regular. GI: Abdomen is obese, is intact. Bowel sounds present X 4 quads. Derm: Skin is pink, warm & dry. redness to bilateral lower abdomen. 08:14 General: resting on stretcher, no apparent distress. resps easy and unlabored. awaiting pml eval by surgeon. 08:45 General: MD Azar in to see patient. pml 09:16 General: Appears in no apparent distress, comfortable, Behavior is appropriate for age, pml cooperative. Pain: Location: left lower quadrant and right lower quadrant Pain currently is 5 out of 10 on a pain scale. Neurological: Level of Consciousness is awake, alert, Oriented to person, place, time. Cardiovascular: Capillary refill < 3 seconds. Respiratory: Airway is patent Respiratory effort is even, unlabored. Derm: Skin is pink, warm & dry. 09:28 General: Pt tolerating diet tray provided. voices no complaints. resps easy and pml unlabored, skin.. 10:23 General: Appears in no apparent distress, Behavior is appropriate for age, cooperative. pml Pain: Location: left lower quadrant and right lower quadrant. Neurological: Level of Consciousness is awake, alert, Oriented to person, place, time. Respiratory: Airway is patent Respiratory effort is even, unlabored. Derm: Skin is pink, warm & dry. 10:59 General: resting on stretcher, eyes closed, resps easy and unlabored, skin p/w/d. pml 11:12 General: report to admission AILYN oquendo. pml Vital Signs: 05/25 23:18 BP 102 / 73; Pulse 135; Resp 18 S; Temp 100.6(O); Pulse Ox 92% on R/A; Weight 106.59 kg gr2 (R); Pain 4/10; 05/26 02:52 Pain 4/10; mlc 04:51 BP 116 / 60; Pulse 102; Resp 18; Temp 99.0; Pulse Ox 96% on R/A; Pain 5/10; mlc 09:25 BP 118 / 63; Pulse 92; Resp 18; Temp 99.1(TE); Pulse Ox 98% on R/A; Pain 5/10; ct3 Vitals: 05/25 23:18 Log In Time: May 25, 2016 at 23:18. gr2 ED Course: 23:18 Patient visited by Glenny Carl. gr2 23:18 Jerod Saba is Private Physician. gr2 23:18 Franklin Lucas is Private Physician. gr2 23:18 Patient moved to Waiting gr2 23:20 Patient visited by Glenny Carl. gr2 23:20 Patient moved to Pre RCE gr2 23:21 Triage Initiated [facility] 23:23 Patient visited by Keiko Miller RN. [facility] 05/26 00:31 Cecile Dixon,AILYN is Primary Nurse. may 00:31 Patient moved to May 00:40 Pt greeted and oriented to ED. Patient advised of names of staff involved in care, [facility] location of call raya, wait times and NPO status. Patient has correct armband on for positive identification. Placed in gown. Bed in low position. Call light in reach. Side rails up X2. 00:41 Patient visited by Andrew Eason PCA. v 01:01 Inserted saline lock: 20 gauge in left antecubital area and blood collected. The [facility] patient tolerated the procedure well. 01:03 Patient visited by Cecile Dixon RN. mlc 01:31 Mohamud Quintanilla DO is Attending Physician. mm11 01:31 Patient visited by Mohamud Quintanilla DO. mm11 01:38 Patient visited by Mohamud Quintanilla DO. mm11 02:00 Patient visited by Cecile Dixon RN. mlc 02:43 Lactic Acid (Melara tube on ice) Sent. mlc 02:43 -Blood Culture Sent. mlc 02:52 Patient visited by Cecile Dixon RN. mlc 03:45 Patient visited by Cecile Dixon RN. mlc 04:51 The patient / caregiver is instructed regarding the plan of care and ED course. mlc 04:53 Patient visited by Cecile Dixon RN. mlc 04:54 CT ABD & PELVIS: IV Contrast Only Returned. EDMS 05:44 Patient visited by Mohamud Quintanilla DO. mm11 06:31 Discontinued IV lock intact, bleeding controlled, pressure dressing applied, No mlc redness/swelling at site. IV site infiltrated. 06:31 Inserted saline lock: 22 gauge in left hand by Althea Vyas, nursing crossing supervisor. mlc 06:32 Patient visited by Cecile Dixon RN. mlc 06:41 [facility] [place] [place] Agreement was scanned into [employer] and attached to record. gjb 07:11 Patient visited by Ema Willis,AILYN. pml 07:29 Ema Willis,RN is Primary Nurse. pml 08:14 Patient visited by Ema Willis,AILYN. pml 08:33 Konstantin Azar MD is Hospitalizing Provider. mm11 09:20 Patient moved to Admit Hold [facility] 09:25 Diet: Patient given regular meal. ct3 09:26 Patient visited by Chela Torres PCA. ct3 09:29 Patient visited by Ema Willis,AILYN. pml 10:24 Patient visited by Ema Willis,AILYN. pml 10:39 T-Sheet-- Draft Copy was scanned into [employer] and attached to record. [facility] 10:59 Patient visited by Ema Willis,AILYN. pml 11:09 Patient moved to I [facility] 11:12 Patient visited by Ema Willis RN. pml 11:45 Primary Nurse role handed off by Cecile Dixon RN ac 12:25 Patient moved to Admit Hold [facility] 13:43 No procedures done that require assistance. pml Administered Medications: 01:58 Drug: ketorolac 30 mg [ketorolac 30 mg/mL (1 mL) injection solution (1 mL)] Route: IVP; mlc Site: left antecubital; 02:52 Follow up: Pain 4/10 Adult; Response: Pain is decreased [facility] 01:59 Drug: NS 0.9% 1000 ml [sodium chloride 0.9 % intravenous solution] Route: IV; Rate: mlc bolus; Site: left antecubital; 01:59 Drug: Ondansetron 4 mg [ondansetron HCl 2 mg/mL intravenous solution (2 mL)] Route: mlc IVP; Site: left antecubital; 02:51 Follow up: Response: Nausea is resolved [facility] 06:31 Drug: cefTRIAXone 1 grams [ceftriaxone 1 gram solution for injection] Route: IVPB; mlc Infused Over: 30 mins; Site: left wrist; 07:10 Follow up: IV Status: Completed infusion; IV Intake: 50ml [facility] 06:31 Drug: NS 0.9% 1000 ml [sodium chloride 0.9 % intravenous solution] Route: IV; Rate: 100 mlc mL/hr; Site: left wrist; Intake: 07:10 IV: 50.00ml; Total: 50.00ml. pml Order Results: Lab Order: Amylase; SPEC'M 05/26/16 01:00 Test: AMYLASE; Value: 33; Range: 25-115; Units: U/L; Status: F Lab Order: Basic Metabolic Profile; SPEC'M 05/26/16 01:00 Test: GLUCOSE, FASTING; Value: 109; Range: 70-105; Abnormal: Above high normal; Units: MG/DL; Status: F Test: BLOOD UREA NITROGEN; Value: 8; Range: 7-18; Units: MG/DL; Status: F Test: CREATININE FOR GFR; Value: 0.64; Range: 0.70-1.30; Abnormal: Below low normal; Units: MG/DL; Status: F Test: GLOMERULAR FILTRATION RATE; Value: > 60.0; Range: >60; Status: F Test: SODIUM LEVEL; Value: 139; Range: 136-145; Units: MEQ/L; Status: F Test: POTASSIUM SERUM; Value: 3.7; Range: 3.5-5.1; Units: MEQ/L; Status: F Test: CHLORIDE LEVEL; Value: 106; Range: 98-107; Units: MEQ/L; Status: F Test: CARBON DIOXIDE LEVEL; Value: 23; Range: 21-32; Units: MEQ/L; Status: F Test: ANION GAP; Value: 10; Range: 8-16; Units: MEQ/L; Status: F Test: CALCIUM LEVEL; Value: 8.7; Range: 8.5-10.1; Units: MG/DL; Status: F Test Note: ; Units are mL/min/1.73 m2 Chronic Kidney Disease Staging per NKF: Stage I & II GFR >=60 Normal to Mildly Decreased Stage III GFR 30-59 Moderately Decreased Stage IV GFR 15-29 Severely Decreased Stage V GFR <15 Very Little GFR Left ESRD GFR <15 on ENCODING MACHINE OPERATOR Lab Order: CBC with Diff; SPEC'M 05/26/16 01:00 Test: WHITE BLOOD COUNT; Value: 13.4; Range: 4.0-10.0; Abnormal: Above high normal; Units: K/mm3; Status: F Test: RED BLOOD COUNT; Value: 5.06; Range: 4.30-6.10; Units: M/mm3; Status: F Test: HEMOGLOBIN; Value: 14.0; Range: 14.0-18.0; Units: g/dl; Status: F Test: HEMATOCRIT; Value: 41.4; Range: 42.0-52.0; Abnormal: Below low normal; Units: %; Status: F Test: MEAN CORPUSCULAR VOLUME; Value: 81.7; Range: 80.0-96.0; Units: fl; Status: F Test: MEAN CORPUSCULAR HEMOGLOBIN; Value: 27.7; Range: 27.0-33.0; Units: pg; Status: F Test: MEAN CORPUSCULAR HGB CONC; Value: 33.9; Range: 32.0-36.5; Units: g/dl; Status: F Test: RED CELL DISTRIBUTION WIDTH; Value: 14.1; Range: 11.5-14.5; Units: %; Status: F Test: PLATELET COUNT, AUTOMATED; Value: 248; Range: 150-450; Units: k/mm3; Status: F Test: NEUTROPHILS %; Value: 78.3; Range: 36.0-66.0; Abnormal: Above high normal; Units: %; Status: F Test: LYMPH %; Value: 9.8; Range: 24.0-44.0; Abnormal: Below low normal; Units: %; Status: F Test: MONO %; Value: 8.7; Range: 0.0-5.0; Abnormal: Above high normal; Units: %; Status: F Test: EOS %; Value: 0.4; Range: 0.0-3.0; Units: %; Status: F Test: BASO %; Value: 1.0; Range: 0.0-1.0; Units: %; Status: F Test: LARGE UNSTAINED CELL %; Value: 1.8; Range: 0.0-4.0; Units: %; Status: F Test: NEUTROPHILS #; Value: 10.5; Range: 1.8-7.7; Abnormal: Above high normal; Units: K/mm3; Status: F Test: LYMPH #; Value: 1.5; Range: 1.5-6.5; Units: K/mm3; Status: F Test: MONO #; Value: 1.2; Range: 0.0-0.8; Abnormal: Above high normal; Units: K/mm3; Status: F Test: EOS #; Value: 0.0; Range: 0.0-0.50; Units: K/mm3; Status: F Test: BASO #; Value: 0.1; Range: 0.0-0.2; Units: K/mm3; Status: F Test: LARGE UNSTAINED CELL #; Value: 0.2; Range: 0.0-0.4; Units: K/mm3; Status: F Lab Order: Lipase; SPEC'M 05/26/16 01:00 Test: LIPASE; Value: 65; Range: 73-393; Abnormal: Below low normal; Units: U/L; Status: F Lab Order: Liver Profile; SPEC'M 05/26/16 01:00 Test: AST/SGOT; Value: 25; Range: 15-37; Units: U/L; Status: F Test: ALT/SGPT; Value: 47; Range: 12-78; Units: U/L; Status: F Test: ALKALINE PHOSPHATASE; Value: 52; Range: 45-117; Units: U/L; Status: F Test: BILIRUBIN,TOTAL; Value: 0.9; Range: 0.2-1.0; Units: MG/DL; Status: F Test: BILIRUBIN,DIRECT; Value: 0.2; Range: 0.0-0.2; Units: MG/DL; Status: F Test: TOTAL PROTEIN; Value: 8.0; Range: 6.4-8.2; Units: GM/DL; Status: F Test: ALBUMIN; Value: 3.9; Range: 3.2-5.2; Units: GM/DL; Status: F Test: ALBUMIN/GLOBULIN RATIO; Value: 0.95; Range: 1.00-1.93; Abnormal: Below low normal; Status: F Lab Order: Lactic Acid (Melara tube on ice); SPEC' 05/26/16 02:38 Test: LACTIC ACID LEVEL, LACTATE; Value: 1.0; Range: 0.4-2.0; Units: MMOL/L; Status: F Lab Order: C REACTIVE PROTEIN QUANTITATIV; SPEC'M 05/26/16 01:00 Test: C REACTIVE PROTEIN QUANTITATIV; Value: 9.76; Range: 0.00-0.30; Abnormal: Above high normal; Units: MG/DL; Status: F Radiology Order: CT ABD & PELVIS: IV Contrast Only Test: CT ABD & PELVIS: IV Contrast Only REASON FOR EXAMINATION: Abdomen Pain; ; CLINICAL HISTORY: Abdominal pain.; TECHNIQUE: Multiple axial, sagittal and coronal CT images were obtained through the abdomen and pelvi; s after administration of intravenous contrast material.; COMMENTS:; Comparison is made to the prior exam performed on 04/25/2016.; Again are noted the changes from prior partial colectomy. Unremarkable left lower quadrant colostomy.; ; Interval appearance of significant diffuse skin thickening to the right lateral aspect of the colosto; my. Adjacent subcutaneous fat stranding with multiple subcutaneous abnormal loculated fluid collectio; ns. The largest measures 7.2x3.1 cm. Findings are suggestive of multifocal seromas/abscess formation.; This needs clinical evaluation and further assessment.; The liver is mildly enlarge or decrease attenuation without mass or defect. There is no intra or extr; ahepatic biliary ductal dilatation. The spleen is normal. The gallbladder is within normal limits. Th; e pancreas is of normal contour and attenuation characteristics. There is no evidence of adrenal mass; .; Both kidneys demonstrate prompt and equal nephrograms. The kidneys are normal in size, shape and conf; iguration. There is no evidence of renal or ureteral mass. No renal or ureteral calculi are identifie; d. There is no hydroureter or hydronephrosis.; No evidence for appendicitis. There is no bowel wall thickening. No evidence for small or large daniela; l obstruction. There is no evidence of abdominal ascites or lymphadenopathy.; There is no evidence of intrinsic or extrinsic bladder mass. There is no pelvic ascites or lymphadeno; micheal.; Images of the lung bases show no evidence of pleural or parenchymal mass. There are no pleural effusi; ons.; The bony structures are free of lytic or blastic lesions. Multilevel degenerative changes are seen in; volving the thoracolumbar spine. Scattered calcifications are seen involving the aorta and major bran; ches compatible with atherosclerosis.; Absent right femur.; IMPRESSION:; No change in hepatomegaly with fatty liver infiltration.; Again are noted the changes from prior partial colectomy.; Unremarkable left lower quadrant colostomy.; Interval appearance of diffuse subcutaneous fat stranding of the anterior abdominal wall suspicious f; or cellulitis.; Multiple subcutaneous fluid collections are adjacent in the subcutaneous fat of the anterior abdomina; l wall to the right lateral aspect of the left colostomy opening. Findings may represent seromas vers; us multifocal abscesses. Smaller collections are noted to the left lateral aspect of the colostomy. T; he above-described collections are limited to the subcutaneous fat of the anterior abdominal without; intra-abdominal extension. Findings were not present on prior exam.; Thank you for your kind referral of this patient.; ; Outcome: 04:53 CT Study completed. [facility] 08:33 Decision to Hospitalize by Provider. mm11 13:42 Discharge Assessment: Patient awake, alert and oriented x 3. No cognitive and/or pml functional deficits noted. Patient verbalized understanding of disposition instructions. patient administered narcotics - no. The following High Risk Discharge criteria are identified: None. Admitted to Med/Surg accompanied by tech, via wheelchair, with chart. Condition: stable. Property :Personal belongings accompany Pt. 13:45 Patient left the ED. pml Signatures: Dispatcher [employer] EDVT Safia Duran RN RN kpj Newman, Antionette Martin RN Keiko Bonilla RN RN mcp Carter, Andy, GEOFFREY PSA Mohamud Soler, DO mm11 Chela Torres, SEASONER SEASONER ct3 Ema Willis RN RN pml Raymond, Gainslee gr2 Cecile Dixon RN RN mlc Beck, Gabriela gjb Hoffert, Andrew Mcmanus, SEASONER SEASONER jmv Chart Complete [facility]AN[facility]
--- NOTE | 2016-05-28 14:46 | EDDOCDS ---
Physician Documentation [facility] Name: Crispin Winters Age: 26 yrs Sex: Male : 1990 Arrival Date: 05/25/2016 Time: 23:17 Bed Admit Hold Private MD: Franklin Lucas Disposition: 05/26/16 08:33 Hospitalization ordered by Konstantin Azar for Inpatient Admission. Preliminary diagnosis is Cellulitis of abdominal wall - with multiple abscesses. - Bed requested for 4 [place]. - Status is Inpatient Admission. pml - Condition is Stable. - Problem is an acute exacerbation. - Symptoms have improved. Historical: - Allergies: no known allergies; - Home Meds: 1. none - PMHx: none; - PSHx: legs amputated; Hernia repair; right arm surgery; Colostomy Construction; - Social history: Smoking status: Patient states was never smoker of tobacco. No barriers to communication noted, The patient speaks fluent Chinese. - Family history: Not pertinent, No immediate family members are acutely ill. - : The pt / caregiver states he / she is not on anticoagulants. Home medication list is obtained from the patient. - Exposure Risk Screening:: None identified. Vital Signs: 05/25 23:18 BP 102 / 73; Pulse 135; Resp 18 S; Temp 100.6(O); Pulse Ox 92% on R/A; Weight 106.59 kg gr2 / 234.99 lbs (R); Pain 4/10; 05/26 02:52 Pain 4/10; mlc 04:51 BP 116 / 60; Pulse 102; Resp 18; Temp 99.0; Pulse Ox 96% on R/A; Pain 5/10; mlc 09:25 BP 118 / 63; Pulse 92; Resp 18; Temp 99.1(TE); Pulse Ox 98% on R/A; Pain 5/10; ct3 MDM: 01:39 NS 0.9% 1000 ml IV at bolus once ordered. mm11 01:39 Ondansetron 4 mg IVP once ordered. mm11 01:39 ketorolac 30 mg IVP once ordered. mm11 01:39 IV Saline Lock ordered. mm11 01:39 Undress patient appropriately for examination ordered. mm11 01:40 -Blood Culture Ordered. EDMS 01:40 Amylase Ordered. EDMS 01:40 Basic Metabolic Profile Ordered. EDMS 01:40 CBC with Diff Ordered. EDMS 01:40 Lipase Ordered. EDMS 01:40 Liver Profile Ordered. EDMS 01:40 Lactic Acid (Melara tube on ice) Ordered. EDMS 01:40 NOTHING BY MOUTH+DIET ordered. EDMS 01:45 C REACTIVE PROTEIN QUANTITATIV Ordered. EDMS 02:38 Basic Metabolic Profile Reviewed. mm11 02:38 CBC with Diff Reviewed. mm11 02:38 Lipase Reviewed. mm11 02:38 Liver Profile Reviewed. mm11 02:38 C REACTIVE PROTEIN QUANTITATIV Reviewed. mm11 02:38 Amylase Reviewed. mm11 02:39 CT ABD & PELVIS: IV Contrast Only Ordered. EDMS 03:18 Lactic Acid (Melara tube on ice) Reviewed. mm11 04:56 Financial registration complete. hs2 05:09 CT ABD & PELVIS: IV Contrast Only Reviewed. mm11 05:25 cefTRIAXone 1 grams IVPB once over 30 mins; dilute in 50mL of NS or D5W ordered. mm11 05:26 NS 0.9% 1000 ml IV at 100 mL/hr continuous ordered. mm11 06:41 [facility] [place] Agreement was scanned into [employer] and attached to record. gjb 08:34 BED REQUEST+ADM ordered. EDMS 08:57 Admission / Observation Status ordered. EDMS 08:57 REGULAR DIET ordered. EDMS 08:59 ABCESS DRAIN (NEED[facility] PLACE) US Ordered. EDMS 10:39 T-Sheet-- Draft Copy was scanned into [employer] and attached to record. se Administered Medications: 01:58 Drug: ketorolac 30 mg [ketorolac 30 mg/mL (1 mL) injection solution (1 mL)] Route: IVP; mlc Site: left antecubital; 02:52 Follow up: Pain 4/10 Adult; Response: Pain is decreased mlc 01:59 Drug: NS 0.9% 1000 ml [sodium chloride 0.9 % intravenous solution] Route: IV; Rate: mlc bolus; Site: left antecubital; 01:59 Drug: Ondansetron 4 mg [ondansetron HCl 2 mg/mL intravenous solution (2 mL)] Route: mlc IVP; Site: left antecubital; 02:51 Follow up: Response: Nausea is resolved mlc 06:31 Drug: cefTRIAXone 1 grams [ceftriaxone 1 gram solution for injection] Route: IVPB; mlc Infused Over: 30 mins; Site: left wrist; 07:10 Follow up: IV Status: Completed infusion; IV Intake: 50ml pml 06:31 Drug: NS 0.9% 1000 ml [sodium chloride 0.9 % intravenous solution] Route: IV; Rate: 100 mlc mL/hr; Site: left wrist; Signatures: Dispatcher [employer] Keiko Frederick RN RN mcp Maynard, Matthew, DO DO mm11 Ema Willis RN RN pml Booth, Mandy, RN RN mlc Sourwine, Sharon, RN RN [facility] Ann Younger, Reg Reg hs2 Zackery, [facility] The chart was reviewed and I authenticate all verbal orders and agree with the evaluation and treatment provided.Corrections: (The following items were deleted from the chart) 01:47 01:41 C REACTIVE PROTEIN QUANTITATIV+LAB ordered. EDMS EDMS Attachments: 06:41 [facility] Agreement robin 10:39 T-Sheet-- Draft Copy [facility] Chart Complete MTDD
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
== END 2016-05-28 13:50 | disposition home or self-care (01) | DRG 920 ==
LOC: M ED 23:17 → M ED INP 05-26 08:53 → M MSPAV 05-26 13:50
PROVIDERS: ADMIT Surgery; ATTEND Surgery
PROC: 0J9830Z Drainage of Abdomen Subcutaneous Tissue and Fascia with Drainage Device, Percutaneous Approach (ICD-10-PCS; principal; 2016-05-27)
PROC: 0J983ZX Drainage of Abdomen Subcutaneous Tissue and Fascia, Percutaneous Approach, Diagnostic (ICD-10-PCS; 2016-05-27)
DX: L76.34 Postprocedural seroma of skin and subcutaneous tissue following other procedure (principal); L02.211 Cutaneous abscess of abdominal wall; Z93.3 Colostomy status; Z89.511 Acquired absence of right leg below knee; Z89.512 Acquired absence of left leg below knee; Z91.82 Personal history of military deployment

== ENCOUNTER → 2016-08-15 | Outpatient (CLI) | payer MEDICARE, OTHER ==
[~2016-08-15] MED LIST changes: +AUGM875T27 PO; +FLAG500T PO
--- NOTE | 2016-08-15 12:08 | REP ---
LIMITED ABDOMINAL ULTRASOUND: CLINICAL: Fluid collection. TECHNIQUE: Real-time, grayscale and color evaluation using linear high frequency transducer. FINDINGS: Directed ultrasound examination in the supraumbilical midline at the site of prior hernia repair, there is moderate subcutaneous edema and a small complex central fluid collection measuring approximately 2.7 x 1.0 x 1.1 cm, which may reflect small residual hematoma or complex seroma. Color evaluation demonstrates no significant vascularity. IMPRESSION: Small subcutaneous supraumbilical complex fluid collection. Differential diagnosis includes seroma and small hematoma. Unreviewed
== END ==
LOC: M RAD 10:23
PROVIDERS: ATTEND Surgery
DX: L76.32 Postprocedural hematoma of skin and subcutaneous tissue following other procedure (principal)

== ENCOUNTER → 2016-09-11 | Outpatient (CLI) | payer MEDICARE, OTHER ==
[~2016-09-11] MED LIST changes: +NORC1TAB4 PO; -NORC5TAB PO
--- NOTE | 2016-09-11 10:52 | REP ---
ULTRASOUND ABDOMINAL WALL: Real-time sonographic evaluation of abdominal wall is performed and compared to prior study of 08/15/2016. Just to the left of the umbilicus slightly superiorly is a small fluid collection in the abdominal wall. This has not significantly changed. It measures about 9 x 13 x 17 mm. IMPRESSION: Essentially stable exam. Signed by Sebas Melara MD 09/12/2016 04:40 P
== END ==
LOC: M RAD 09:30
PROVIDERS: ATTEND Surgery
DX: L76.32 Postprocedural hematoma of skin and subcutaneous tissue following other procedure (principal)

== ENCOUNTER → 2016-09-27 | Outpatient (CLI) | payer MEDICARE, OTHER ==
[~2016-09-27] MED LIST changes: +GASTROGRAFIN SOLUTION 30ML (Q9963) As Ordered ONE; +ISOVUE-370 76% 100ML VIAL (Q9967) As Ordered ONE
--- NOTE | 2016-09-27 15:54 | REP ---
REASON: Assess postoperative hematoma. COMPARISON: 05/26/2016. CONTRAST: 100 mL Isovue 370. There is no change in the lung bases. The liver, gallbladder, spleen, pancreas, adrenal glands, and kidneys are within normal limits. The abdominal aorta and paraaortic regions are within normal limits. There is no free fluid or free air in the abdomen. There is no intestinal obstruction. There is a large stomal hernia through which multiple small bowel loops reside. This represents a change from the prior exam. The small postoperative seroma/hematoma seen on the subcutaneous fat along the ventral surface of the abdominal wall has resolved. A small bowel loop now resides in that area raising the question of an additional ventral hernia. There are chronic changes in the pelvis status quo. There are chronic osseous changes status quo. IMPRESSION: 1. New large stomal hernia as described above. 2. Resolved small seroma/postoperative hematoma, but with possible new slight umbilical hernia. Correlate clinically. 3. Other findings as described above. Signed by Tonio Guthrie DO 09/27/2016 04:47 P
== END ==
LOC: M RAD 11:58
PROVIDERS: ATTEND Surgery
DX: L76.32 Postprocedural hematoma of skin and subcutaneous tissue following other procedure (principal)
CPT/HCPCS: 74177; Q9963; Q9967

== ENCOUNTER 2018-03-16 12:36 | Inpatient (IN) | payer OTHER, MEDICARE ==
[2018-03-16 15:11] LABS: KETONE, URINE AUTO RFX 2+ mg/dL (NEGATIVE); LEUKOCYTE ESTERASE UR AUTO RFX NEGATIVE (NEGATIVE); MUCUS, URINE RFX MODERATE (NEGATIVE); NITRITE, URINE AUTO RFX NEGATIVE (NEGATIVE); RBC, URINE AUTO RFX 0 /HPF (0-3); SQUAM EPITHELIAL CELL UR AURFX 0 /HPF (0-6); WBC, URINE AUTO RFX 0 /HPF (0-3)
[2018-03-16 15:20] LABS: BASO # 0.1 10^3/uL (0.0-0.2); BASO % 0.9 % (0.0-1.0); EOS # 0.2 10^3/uL (0.0-0.50); EOS % 2.7 % (0.0-3.0); HEMATOCRIT 42.5 % (42.0-52.0); HEMOGLOBIN 14.5 g/dl (13.5-17.5); IMMATURE GRANULOCYTE % 0.4 % (0-3.0); LYMPH # 1.8 10^3/uL (1.5-6.5); LYMPH % 21.8 % (24.0-44.0); MEAN CORPUSCULAR HGB CONC 34.1 g/dl (32.0-36.5); MONO # 0.8 10^3/uL (0.0-0.8); MONO % 10.2 % (0.0-5.0); NEUTROPHILS # 5.2 10^3/uL (1.8-7.7); PLATELET COUNT, AUTOMATED 276 10^3/uL (150-450); RED BLOOD COUNT 5.18 10^6/uL (4.30-6.10); RED CELL DISTRIBUTION WIDTH 12.2 % (11.5-14.5)
[2018-03-16 15:43] LABS: ALBUMIN 4.2 GM/DL (3.2-5.2); ALKALINE PHOSPHATASE 50 U/L (45-117); ALT/SGPT 24 U/L (12-78); ANION GAP 8 MEQ/L (8-16); AST/SGOT 18 U/L (7-37); BILIRUBIN,DIRECT 0.1 MG/DL (0.0-0.2); BILIRUBIN,TOTAL 0.7 MG/DL (0.2-1.0); BLOOD UREA NITROGEN 8 MG/DL (7-18); CALCIUM LEVEL 9.3 MG/DL (8.5-10.1); CARBON DIOXIDE LEVEL 25 MEQ/L (21-32); CHLORIDE LEVEL 104 MEQ/L (98-107); CREATININE FOR GFR 0.57 MG/DL (0.70-1.30); GLOMERULAR FILTRATION RATE > 60.0 (>60); GLUCOSE, FASTING 89 MG/DL (70-100); LIPASE 59 U/L (73-393); POTASSIUM SERUM 3.9 MEQ/L (3.5-5.1); SODIUM LEVEL 137 MEQ/L (136-145); TOTAL PROTEIN 7.7 GM/DL (6.4-8.2)
[2018-03-16] MEDS: NS 1,000 ML IV ×4 (15:45→16:15)
[2018-03-16] MEDS ORDERED: ONDANSETRON 4MG/2ML VIAL (J2405) As Ordered ×2 (15:47)
[2018-03-16] MEDS ORDERED: ISOVUE-370 76% 100ML VIAL (Q9967) As Ordered ×2 (16:06)
[2018-03-16] MEDS: ONDANSETRON 4MG/2ML VIAL (J2405) IV ×2 (16:44)
[2018-03-16] MEDS ORDERED: MORPHINE 4 MG/ML 1ML VIAL/SYRINGE (J2270) IV ×2 (20:00)
[2018-03-16] MEDS ORDERED: ACETAMINOPHEN TAB 650MG DOSE (2X325MG) PO ×2 (20:00)
[2018-03-16] MEDS ORDERED: METOCLOPRAMIDE INJ 10MG/2ML VIAL (J2765) IV ×2 (20:00)
[2018-03-16] MEDS: LR 1,000 ML IV ×2 (23:16)
[2018-03-16] MEDS: NORCO, ANEXSIA 5/325MG TABLET (HYDROcodone/ACETAMINOPHEN) PO ×2 (23:16)
[2018-03-17] MEDS: NORCO, ANEXSIA 5/325MG TABLET (HYDROcodone/ACETAMINOPHEN) PO ×8 (04:13→21:36)
[2018-03-17 08:12] LABS: BASO # 0.1 10^3/uL (0.0-0.2); EOS # 0.3 10^3/uL (0.0-0.50); EOS % 5.1 % (0.0-3.0); HEMATOCRIT 40.3 % (42.0-52.0); HEMOGLOBIN 13.6 g/dl (13.5-17.5); IMMATURE GRANULOCYTE % 0.6 % (0-3.0); LYMPH # 1.9 10^3/uL (1.5-6.5); MEAN CORPUSCULAR HEMOGLOBIN 28.1 pg (27.0-33.0); MEAN CORPUSCULAR HGB CONC 33.7 g/dl (32.0-36.5); MEAN CORPUSCULAR VOLUME 83.3 fl (80.0-96.0); MONO # 0.6 10^3/uL (0.0-0.8); NEUTROPHILS # 3.3 10^3/uL (1.8-7.7); NEUTROPHILS % 53.3 % (36.0-66.0); PLATELET COUNT, AUTOMATED 207 10^3/uL (150-450); RED BLOOD COUNT 4.84 10^6/uL (4.30-6.10); RED CELL DISTRIBUTION WIDTH 12.2 % (11.5-14.5); WHITE BLOOD COUNT 6.2 10^3/uL (4.0-10.0)
[2018-03-17] MEDS: ONDANSETRON 4MG/2ML VIAL (J2405) IV ×2 (14:41)
[2018-03-17] MEDS: LR 1,000 ML IV ×2 (15:27)
[2018-03-18] MEDS: NORCO, ANEXSIA 5/325MG TABLET (HYDROcodone/ACETAMINOPHEN) PO ×6 (06:06→23:39)
[2018-03-18] MEDS: LR 1,000 ML IV ×6 (06:42→21:09)
[2018-03-18] MEDS ORDERED: E-Z-PAQUE 96% w/w SUSP 176GM BTL As Ordered ×2 (11:41)
[2018-03-18] MEDS ORDERED: E-Z-GAS II EFFERVESCENT PACKET (SODIUM BICARB./CITRIC ACID/SIMETHICONE) As Ordered ×2 (11:41)
[2018-03-18] MEDS ORDERED: E-Z-HD 98% w/w 340GM SUSP BTL As Ordered ×2 (11:41)
[2018-03-18] MEDS: ONDANSETRON 4MG/2ML VIAL (J2405) IV ×2 (21:08)
[2018-03-18] MEDS: KETOROLAC 30 MG/ML VIAL (J1885) IV ×2 (21:09)
[2018-03-19] MEDS: ONDANSETRON 4MG/2ML VIAL (J2405) IV ×2 (13:09)
[2018-03-19] MEDS: KETOROLAC 30 MG/ML VIAL (J1885) IV ×2 (14:39)
[2018-03-19] MEDS: LR 1,000 ML IV ×2 (14:42)
[2018-03-19] MEDS: NORCO, ANEXSIA 5/325MG TABLET (HYDROcodone/ACETAMINOPHEN) PO ×2 (20:59)
[2018-03-20] MEDS: NORCO, ANEXSIA 5/325MG TABLET (HYDROcodone/ACETAMINOPHEN) PO ×6 (02:01→20:33)
[2018-03-20] MEDS: LR 1,000 ML IV ×2 (12:36)
[2018-03-21] MEDS: LR 1,000 ML IV ×4 (05:16→23:43)
[2018-03-21 08:33] LABS: BASO # 0.1 10^3/uL (0.0-0.2); BASO % 0.9 % (0.0-1.0); EOS # 0.2 10^3/uL (0.0-0.50); EOS % 2.7 % (0.0-3.0); HEMATOCRIT 37.4 % (42.0-52.0); HEMOGLOBIN 13.1 g/dl (13.5-17.5); IMMATURE GRANULOCYTE % 1.4 % (0-3.0); LYMPH # 1.6 10^3/uL (1.5-6.5); LYMPH % 24.3 % (24.0-44.0); MEAN CORPUSCULAR HEMOGLOBIN 28.6 pg (27.0-33.0); MEAN CORPUSCULAR VOLUME 81.7 fl (80.0-96.0); MONO # 0.6 10^3/uL (0.0-0.8); MONO % 9.3 % (0.0-5.0); NEUTROPHILS % 61.4 % (36.0-66.0); PLATELET COUNT, AUTOMATED 253 10^3/uL (150-450); RED BLOOD COUNT 4.58 10^6/uL (4.30-6.10); RED CELL DISTRIBUTION WIDTH 12.1 % (11.5-14.5); WHITE BLOOD COUNT 6.6 10^3/uL (4.0-10.0)
[2018-03-21 08:59] LABS: ALBUMIN 3.2 GM/DL (3.2-5.2); ALKALINE PHOSPHATASE 36 U/L (45-117); ALT/SGPT 14 U/L (12-78); ANION GAP 11 MEQ/L (8-16); AST/SGOT 9 U/L (7-37); BILIRUBIN,TOTAL 0.6 MG/DL (0.2-1.0); BLOOD UREA NITROGEN 4 MG/DL (7-18); CALCIUM LEVEL 8.3 MG/DL (8.5-10.1); CARBON DIOXIDE LEVEL 21 MEQ/L (21-32); CHLORIDE LEVEL 107 MEQ/L (98-107); CREATININE FOR GFR 0.33 MG/DL (0.70-1.30); GLOMERULAR FILTRATION RATE > 60.0 (>60); GLUCOSE, FASTING 69 MG/DL (70-100); POTASSIUM SERUM 3.3 MEQ/L (3.5-5.1); SODIUM LEVEL 139 MEQ/L (136-145); TOTAL PROTEIN 6.4 GM/DL (6.4-8.2)
[2018-03-21] MEDS: ONDANSETRON 4MG/2ML VIAL (J2405) IV ×2 (11:49)
[2018-03-21] MEDS: POTASSIUM CHLORIDE 10 MEQ SR TABLET PO ×2 (11:51)
[2018-03-21] MEDS: KETOROLAC 30 MG/ML VIAL (J1885) IV ×2 (11:51)
[2018-03-21] MEDS: NORCO, ANEXSIA 5/325MG TABLET (HYDROcodone/ACETAMINOPHEN) PO ×2 (21:47)
[2018-03-22] MEDS: NORCO, ANEXSIA 5/325MG TABLET (HYDROcodone/ACETAMINOPHEN) PO ×8 (01:48→23:45)
[2018-03-22] MEDS: MIRALAX *UNIT DOSE* 17GM PACKET PO ×2 (09:13)
[2018-03-23] MEDS: LR 1,000 ML IV ×2 (08:42)
[2018-03-23] MEDS: NORCO, ANEXSIA 5/325MG TABLET (HYDROcodone/ACETAMINOPHEN) PO ×4 (09:48→20:49)
[2018-03-23] MEDS: MIRALAX *UNIT DOSE* 17GM PACKET PO ×2 (09:48)
[2018-03-23] MEDS ORDERED: MORPHINE 4 MG/ML 1ML VIAL/SYRINGE (J2270) IV ×2 (20:15)
[2018-03-24] MEDS: NORCO, ANEXSIA 5/325MG TABLET (HYDROcodone/ACETAMINOPHEN) PO ×6 (04:03→21:47)
[2018-03-24] MEDS: MIRALAX *UNIT DOSE* 17GM PACKET PO ×2 (09:17)
[2018-03-25] MEDS: LR 1,000 ML IV ×4 (00:30→00:42)
[2018-03-25] MEDS: MIRALAX *UNIT DOSE* 17GM PACKET PO ×2 (09:20)
[2018-03-25] MEDS: ONDANSETRON 4MG/2ML VIAL (J2405) IV ×2 (09:59)
[2018-03-25] MEDS: NORCO, ANEXSIA 5/325MG TABLET (HYDROcodone/ACETAMINOPHEN) PO ×2 (18:09)
[2018-03-26] MEDS: NORCO, ANEXSIA 5/325MG TABLET (HYDROcodone/ACETAMINOPHEN) PO ×4 (00:19→21:01)
[2018-03-26] MEDS: LR 1,000 ML IV ×4 (00:19→16:42)
[2018-03-26 06:29] LABS: ALBUMIN 3.5 GM/DL (3.2-5.2); ALBUMIN/GLOBULIN RATIO 1.03 (1.00-1.93); ALKALINE PHOSPHATASE 44 U/L (45-117); ALT/SGPT 13 U/L (12-78); ANION GAP 9 MEQ/L (8-16); AST/SGOT 10 U/L (7-37); BILIRUBIN,TOTAL 0.6 MG/DL (0.2-1.0); BLOOD UREA NITROGEN 8 MG/DL (7-18); CALCIUM LEVEL 8.6 MG/DL (8.5-10.1); CARBON DIOXIDE LEVEL 26 MEQ/L (21-32); CHLORIDE LEVEL 107 MEQ/L (98-107); CREATININE FOR GFR 0.49 MG/DL (0.70-1.30); GLOMERULAR FILTRATION RATE > 60.0 (>60); GLUCOSE, FASTING 88 MG/DL (70-100); POTASSIUM SERUM 3.4 MEQ/L (3.5-5.1); SODIUM LEVEL 142 MEQ/L (136-145); TOTAL PROTEIN 6.9 GM/DL (6.4-8.2)
[2018-03-26] MEDS: MIRALAX *UNIT DOSE* 17GM PACKET PO ×2 (09:00)
[2018-03-26] MEDS ORDERED: LIDOCAINE 1% MDV 20ML VIAL As Ordered ×2 (14:28)
[2018-03-26] MEDS: SODIUM CHLORIDE 0.9% INJ 10 ML SYR IV ×2 (17:09)
[2018-03-26] MEDS ORDERED: ELECTROLYTE IV (18:00)
[2018-03-26] MEDS ORDERED: [UNRECOGNIZED DRUG - OTHER] IV (18:00)
[2018-03-26] MEDS ORDERED: DEX IV (18:00)
[2018-03-26] MEDS ORDERED: CALC IV (18:00)
[2018-03-26] MEDS ORDERED: AMINO AC IV (18:00)
[2018-03-26] MEDS ORDERED: AMINO AC/ELECTROLYTE/DEX/CALC 2,000 ML IV ×2 (19:22)
[2018-03-26] MEDS: FAT EMULSION IV 20% 500 ML IV ×2 (20:09)
[2018-03-26] MEDS: AMINO AC/ELECTROLYTE/DEX/CALC 2,000 ML IV ×2 (20:09)
[2018-03-27] MEDS: SODIUM CHLORIDE 0.9% INJ 10 ML SYR IV ×4 (05:17→20:15)
[2018-03-27] MEDS: AMINO AC/ELECTROLYTE/DEX/CALC 2,000 ML IV ×2 (20:15)
[2018-03-27] MEDS: FAT EMULSION IV 20% 500 ML IV ×2 (20:15)
[2018-03-28] MEDS: SODIUM CHLORIDE 0.9% INJ 10 ML SYR IV ×4 (05:53→17:59)
[2018-03-28] MEDS: AMINO AC/ELECTROLYTE/DEX/CALC 2,000 ML IV ×2 (17:48)
[2018-03-28] MEDS: FAT EMULSION IV 20% 500 ML IV ×2 (17:48)
[2018-03-28] MEDS: NORCO, ANEXSIA 5/325MG TABLET (HYDROcodone/ACETAMINOPHEN) PO ×2 (21:28)
[2018-03-29] MEDS: SODIUM CHLORIDE 0.9% INJ 10 ML SYR IV ×6 (06:20→17:42)
[2018-03-29 09:35] LABS: ANION GAP 9 MEQ/L (8-16); BLOOD UREA NITROGEN 8 MG/DL (7-18); CARBON DIOXIDE LEVEL 26 MEQ/L (21-32); CHLORIDE LEVEL 104 MEQ/L (98-107); CREATININE FOR GFR 0.49 MG/DL (0.70-1.30); GLOMERULAR FILTRATION RATE > 60.0 (>60); GLUCOSE, FASTING 101 MG/DL (70-100); POTASSIUM SERUM 3.8 MEQ/L (3.5-5.1); SODIUM LEVEL 139 MEQ/L (136-145)
[2018-03-29] MEDS: AMINO AC/ELECTROLYTE/DEX/CALC 2,000 ML IV ×2 (17:32)
[2018-03-29] MEDS: FAT EMULSION IV 20% 500 ML IV ×2 (17:32)
[2018-03-29] MEDS: ONDANSETRON 4MG/2ML VIAL (J2405) IV ×2 (17:42)
[2018-03-29] MEDS: NORCO, ANEXSIA 5/325MG TABLET (HYDROcodone/ACETAMINOPHEN) PO ×2 (23:05)
[2018-03-30] MEDS: SODIUM CHLORIDE 0.9% INJ 10 ML SYR IV ×4 (05:36→17:50)
[2018-03-30] MEDS: ONDANSETRON 4MG/2ML VIAL (J2405) IV ×2 (17:50)
[2018-03-30] MEDS: MULTIVITAMIN -ADULT INJECTION 10 ML, CR/CU/SE/MN/ZN INJ 1 ML in AMINO AC/ELECTROLYTE/DE... IV ×2 (17:51)
[2018-03-30] MEDS: FAT EMULSION IV 20% 500 ML IV ×2 (17:51)
[2018-03-30] MEDS: NORCO, ANEXSIA 5/325MG TABLET (HYDROcodone/ACETAMINOPHEN) PO ×2 (22:35)
[2018-03-31] MEDS: SODIUM CHLORIDE 0.9% INJ 10 ML SYR IV ×6 (06:54→17:27)
[2018-03-31 07:11] LABS: BASO # 0.1 10^3/uL (0.0-0.2); BASO % 1.1 % (0.0-1.0); EOS # 0.3 10^3/uL (0.0-0.50); EOS % 5.7 % (0.0-3.0); HEMATOCRIT 41.6 % (42.0-52.0); HEMOGLOBIN 14.1 g/dl (13.5-17.5); IMMATURE GRANULOCYTE % 0.4 % (0-3.0); LYMPH # 1.7 10^3/uL (1.5-6.5); LYMPH % 31.4 % (24.0-44.0); MEAN CORPUSCULAR HGB CONC 33.9 g/dl (32.0-36.5); MEAN CORPUSCULAR VOLUME 82.5 fl (80.0-96.0); MONO # 0.7 10^3/uL (0.0-0.8); MONO % 13.5 % (0.0-5.0); NEUTROPHILS # 2.6 10^3/uL (1.8-7.7); NEUTROPHILS % 47.9 % (36.0-66.0); PLATELET COUNT, AUTOMATED 230 10^3/uL (150-450); RED BLOOD COUNT 5.04 10^6/uL (4.30-6.10); RED CELL DISTRIBUTION WIDTH 12.4 % (11.5-14.5); WHITE BLOOD COUNT 5.5 10^3/uL (4.0-10.0)
[2018-03-31 07:43] LABS: ALBUMIN 3.7 GM/DL (3.2-5.2); ALBUMIN/GLOBULIN RATIO 1.23 (1.00-1.93); ALKALINE PHOSPHATASE 42 U/L (45-117); ALT/SGPT 31 U/L (12-78); ANION GAP 7 MEQ/L (8-16); AST/SGOT 21 U/L (7-37); BILIRUBIN,TOTAL 0.5 MG/DL (0.2-1.0); BLOOD UREA NITROGEN 9 MG/DL (7-18); CALCIUM LEVEL 8.7 MG/DL (8.5-10.1); CARBON DIOXIDE LEVEL 28 MEQ/L (21-32); CHLORIDE LEVEL 103 MEQ/L (98-107); CREATININE FOR GFR 0.52 MG/DL (0.70-1.30); GLOMERULAR FILTRATION RATE > 60.0 (>60); GLUCOSE, FASTING 101 MG/DL (70-100); POTASSIUM SERUM 3.6 MEQ/L (3.5-5.1); SODIUM LEVEL 138 MEQ/L (136-145); TOTAL PROTEIN 6.7 GM/DL (6.4-8.2)
[2018-03-31] MEDS: ONDANSETRON 4MG/2ML VIAL (J2405) IV ×2 (17:27)
[2018-03-31] MEDS: FAT EMULSION IV 20% 500 ML IV ×2 (20:27)
[2018-03-31] MEDS: AMINO AC/ELECTROLYTE/DEX/CALC 2,000 ML IV ×2 (20:27)
[2018-03-31] MEDS: NORCO, ANEXSIA 5/325MG TABLET (HYDROcodone/ACETAMINOPHEN) PO ×2 (23:22)
[2018-04-01] MEDS: SODIUM CHLORIDE 0.9% INJ 10 ML SYR IV ×4 (05:11→19:08)
[2018-04-01] MEDS ORDERED: ONDANSETRON 4MG/2ML VIAL (J2405) As Ordered ×2 (07:11)
[2018-04-01] MEDS ORDERED: GLYCOPYRROLATE INJ 0.2 MG/ML 2 ML VIAL As Ordered ×2 (07:11)
[2018-04-01] MEDS ORDERED: LIDOCAINE 2% JELLY 30 ML As Ordered ×2 (07:11)
[2018-04-01] MEDS ORDERED: NEOSTIGMINE 10 MG/10 ML VIAL (J2710) As Ordered ×2 (07:11)
[2018-04-01] MEDS ORDERED: KETOROLAC 60 MG/2 ML VIAL (J1885) As Ordered ×2 (07:11)
[2018-04-01] MEDS ORDERED: dexameTHASONE 4 MG/ML 1ML VIAL (J1100) As Ordered ×2 (07:11)
[2018-04-01] MEDS ORDERED: ROCURONIUM BROMIDE 50 MG/5 ML VIAL As Ordered ×8 (07:11→12:36)
[2018-04-01] MEDS ORDERED: PROPOFOL 200 MG/20 ML VIAL As Ordered ×2 (07:11)
[2018-04-01] MEDS ORDERED: LIDOCAINE 2% INJ 100 MG/5 ML SDV (FOR ANES.) As Ordered ×2 (07:11)
[2018-04-01] MEDS ORDERED: HYDROmorphone HCL 2 MG/ML 1ML VIAL (J1170) As Ordered ×2 (07:12)
[2018-04-01] MEDS ORDERED: fentaNYL 100 MCG/2 ML INJECTION (J3010) As Ordered ×2 (07:12)
[2018-04-01] MEDS ORDERED: MIDAZOLAM INJ 2 MG/2 ML VIAL (J2250) As Ordered ×2 (07:14)
[2018-04-01] MEDS: cefoTEtan INJ 2GM VIAL (S0074 PER 500MG) As Ordered ×4 (08:25→14:26)
[2018-04-01] MEDS ORDERED: DESFLURANE 240 ML INHALANT As Ordered ×2 (11:35)
[2018-04-01] MEDS: BUPIVACAINE HCL 0.25% 30 ML VIAL As Ordered ×2 (14:30)
[2018-04-01] MEDS: LIDOCAINE 1% SDV INJ 30 ML VIAL As Ordered ×2 (14:48)
[2018-04-01] MEDS ORDERED: EPIDURAL/PCA KEYS XX ×2 (15:15)
[2018-04-01] MEDS ORDERED: NALBUPHINE HCL 10 MG/ML AMP (J2300) IV ×2 (15:15)
[2018-04-01] MEDS ORDERED: NALOXONE INJ 0.4 MG/1 ML VIAL (J2310) IV ×2 (15:15)
[2018-04-01] MEDS: LR 1,000 ML IV ×2 (15:30)
[2018-04-01] MEDS ORDERED: MORPHINE 10 MG/ML 1ML VIAL (J2270) IV ×2 (15:30)
[2018-04-01] MEDS ORDERED: ONDANSETRON 4MG/2ML VIAL (J2405) IV ×2 (15:30)
[2018-04-01] MEDS ORDERED: fentaNYL 100 MCG/2 ML INJECTION (J3010) IV ×2 (15:30)
[2018-04-01] MEDS ORDERED: MORPHINE 1MG/ML IN 0.9% NACL 100ML IV BAG As Ordered (15:46)
[2018-04-01] MEDS: MORPHINE 1MG/ML IN 0.9% NACL 100ML IV BAG IV (16:00)
[2018-04-01] MEDS: KETOROLAC 30 MG/ML VIAL (J1885) IV ×4 (16:00→22:41)
[2018-04-01] MEDS: ONDANSETRON 4MG/2ML VIAL (J2405) IV ×2 (19:03)
[2018-04-01] MEDS: NS 1,000 ML IV ×2 (19:09)
[2018-04-01] MEDS: FAT EMULSION IV 20% 500 ML IV ×2 (21:34)
[2018-04-01] MEDS: AMINO AC/ELECTROLYTE/DEX/CALC 2,000 ML IV ×2 (21:35)
[2018-04-02] MEDS: KETOROLAC 30 MG/ML VIAL (J1885) IV ×8 (03:35→22:00)
[2018-04-02] MEDS: SODIUM CHLORIDE 0.9% INJ 10 ML SYR IV ×4 (04:03→18:00)
[2018-04-02 06:39] LABS: BASO % 0.2 % (0.0-1.0); EOS % 0.1 % (0.0-3.0); HEMOGLOBIN 12.4 g/dl (13.5-17.5); IMMATURE GRANULOCYTE % 0.4 % (0-3.0); LYMPH % 12.4 % (24.0-44.0); MEAN CORPUSCULAR HEMOGLOBIN 27.9 pg (27.0-33.0); MEAN CORPUSCULAR HGB CONC 33.5 g/dl (32.0-36.5); MEAN CORPUSCULAR VOLUME 83.1 fl (80.0-96.0); MONO # 1.5 10^3/uL (0.0-0.8); MONO % 18.8 % (0.0-5.0); NEUTROPHILS # 5.5 10^3/uL (1.8-7.7); NEUTROPHILS % 68.1 % (36.0-66.0); PLATELET COUNT, AUTOMATED 226 10^3/uL (150-450); RED BLOOD COUNT 4.45 10^6/uL (4.30-6.10); RED CELL DISTRIBUTION WIDTH 12.4 % (11.5-14.5); WHITE BLOOD COUNT 8.1 10^3/uL (4.0-10.0)
[2018-04-02 07:26] LABS: ANION GAP 8 MEQ/L (8-16); BLOOD UREA NITROGEN 11 MG/DL (7-18); CARBON DIOXIDE LEVEL 28 MEQ/L (21-32); CHLORIDE LEVEL 106 MEQ/L (98-107); CREATININE FOR GFR 0.51 MG/DL (0.70-1.30); GLOMERULAR FILTRATION RATE > 60.0 (>60); GLUCOSE, FASTING 111 MG/DL (70-100); POTASSIUM SERUM 3.7 MEQ/L (3.5-5.1); SODIUM LEVEL 142 MEQ/L (136-145)
[2018-04-02] MEDS ORDERED: FAT EMULSION IV 20% 500 ML IV ×2 (18:00)
[2018-04-02] MEDS ORDERED: MULTIVITAMIN -ADULT INJECTION 10 ML, CR/CU/SE/MN/ZN INJ 1 ML in AMINO AC/ELECTROLYTE/DE... IV ×2 (18:00)
[2018-04-02] MEDS: FAT EMULSION IV 20% 500 ML IV ×2 (18:00)
[2018-04-02] MEDS: AMINO AC/ELECTROLYTE/DEX/CALC 2,000 ML IV ×2 (18:00)
[2018-04-02] MEDS: ALVIMOPAN 12 MG CAPSULE (ENTEREG) PO ×2 (21:03)
[2018-04-03] MEDS: KETOROLAC 30 MG/ML VIAL (J1885) IV ×4 (04:00→10:00)
[2018-04-03] MEDS: SODIUM CHLORIDE 0.9% INJ 10 ML SYR IV ×4 (06:01→22:12)
[2018-04-03] MEDS: ALVIMOPAN 12 MG CAPSULE (ENTEREG) PO ×4 (11:18→22:11)
[2018-04-03] MEDS: NS 1,000 ML IV ×4 (19:30→23:18)
[2018-04-03] MEDS: ONDANSETRON 4MG/2ML VIAL (J2405) IV ×4 (19:57→23:57)
[2018-04-03] MEDS: FAT EMULSION IV 20% 500 ML IV ×2 (22:12)
[2018-04-03] MEDS: AMINO AC/ELECTROLYTE/DEX/CALC 2,000 ML IV ×2 (22:13)
[2018-04-04] MEDS: PROMETHAZINE INJ 25 MG/ML VIAL (J2550) IV ×6 (01:09→16:44)
[2018-04-04] MEDS: SODIUM CHLORIDE 0.9% INJ 10 ML SYR IV ×6 (06:37→18:00)
[2018-04-04 07:04] LABS: BASO # 0.1 10^3/uL (0.0-0.2); BASO % 1.1 % (0.0-1.0); EOS # 0.3 10^3/uL (0.0-0.50); EOS % 4.5 % (0.0-3.0); HEMOGLOBIN 13.2 g/dl (13.5-17.5); IMMATURE GRANULOCYTE % 0.5 % (0-3.0); LYMPH # 1.4 10^3/uL (1.5-6.5); LYMPH % 21.2 % (24.0-44.0); MEAN CORPUSCULAR HEMOGLOBIN 27.9 pg (27.0-33.0); MEAN CORPUSCULAR HGB CONC 33.8 g/dl (32.0-36.5); MEAN CORPUSCULAR VOLUME 82.5 fl (80.0-96.0); MONO # 1.1 10^3/uL (0.0-0.8); MONO % 16.4 % (0.0-5.0); NEUTROPHILS # 3.6 10^3/uL (1.8-7.7); NEUTROPHILS % 56.3 % (36.0-66.0); PLATELET COUNT, AUTOMATED 238 10^3/uL (150-450); RED BLOOD COUNT 4.73 10^6/uL (4.30-6.10); RED CELL DISTRIBUTION WIDTH 12.2 % (11.5-14.5); WHITE BLOOD COUNT 6.5 10^3/uL (4.0-10.0)
[2018-04-04 07:32] LABS: ANION GAP 6 MEQ/L (8-16); BLOOD UREA NITROGEN 9 MG/DL (7-18); CALCIUM LEVEL 8.6 MG/DL (8.5-10.1); CARBON DIOXIDE LEVEL 29 MEQ/L (21-32); CHLORIDE LEVEL 105 MEQ/L (98-107); CREATININE FOR GFR 0.49 MG/DL (0.70-1.30); GLOMERULAR FILTRATION RATE > 60.0 (>60); GLUCOSE, FASTING 92 MG/DL (70-100); SODIUM LEVEL 140 MEQ/L (136-145)
[2018-04-04] MEDS: ALVIMOPAN 12 MG CAPSULE (ENTEREG) PO ×4 (09:09→22:15)
[2018-04-04] MEDS: ENOXAPARIN 40 MG/0.4 ML SYRINGE (J1650) SC ×2 (09:09)
[2018-04-04] MEDS: METOCLOPRAMIDE INJ 10MG/2ML VIAL (J2765) IV ×6 (09:09→22:56)
[2018-04-04] MEDS: MORPHINE 1MG/ML IN 0.9% NACL 100ML IV BAG IV (09:48)
[2018-04-04] MEDS: NS 1,000 ML IV ×2 (15:07)
[2018-04-04] MEDS: ONDANSETRON 4MG/2ML VIAL (J2405) IV ×2 (18:20)
[2018-04-04] MEDS: FAT EMULSION IV 20% 500 ML IV ×2 (22:57)
[2018-04-04] MEDS: AMINO AC/ELECTROLYTE/DEX/CALC 2,000 ML IV ×2 (22:57)
[2018-04-05] MEDS: PROMETHAZINE INJ 25 MG/ML VIAL (J2550) IV ×8 (00:06→21:43)
[2018-04-05] MEDS: CALCIUM CARBONATE 500 MG CHEW U/D PO ×6 (03:03→16:59)
[2018-04-05] MEDS: SODIUM CHLORIDE 0.9% INJ 10 ML SYR IV ×6 (05:43→20:00)
[2018-04-05] MEDS: METOCLOPRAMIDE INJ 10MG/2ML VIAL (J2765) IV ×4 (08:10→20:32)
[2018-04-05] MEDS: ENOXAPARIN 40 MG/0.4 ML SYRINGE (J1650) SC ×2 (08:11)
[2018-04-05] MEDS: ALVIMOPAN 12 MG CAPSULE (ENTEREG) PO ×4 (08:11→21:43)
[2018-04-05] MEDS: SUCRALFATE 1 GM TAB PO ×2 (13:00)
[2018-04-05] MEDS ORDERED: SUCRALFATE 1 GM TAB PO ×2 (13:00)
[2018-04-05] MEDS: ONDANSETRON 4MG/2ML VIAL (J2405) IV ×4 (16:59→23:47)
[2018-04-05] MEDS: SUCRALFATE SUSP 1GM/10ML UD PO ×4 (20:00→21:00)
[2018-04-05] MEDS: NS 1,000 ML IV ×2 (20:00)
[2018-04-06] MEDS: diphenhydrAMINE INJ 50MG/ML VIAL (J1200) IV ×2 (01:58)
[2018-04-06] MEDS: METOCLOPRAMIDE INJ 10MG/2ML VIAL (J2765) IV ×2 (05:37)
[2018-04-06] MEDS: SODIUM CHLORIDE 0.9% INJ 10 ML SYR IV ×4 (05:37→18:02)
[2018-04-06] MEDS: CALCIUM CARBONATE 500 MG CHEW U/D PO ×2 (05:37)
[2018-04-06] MEDS: FAT EMULSION IV 20% 500 ML IV ×2 (07:59)
[2018-04-06] MEDS: AMINO AC/ELECTROLYTE/DEX/CALC 2,000 ML IV ×2 (07:59)
[2018-04-06] MEDS: SUCRALFATE SUSP 1GM/10ML UD PO ×2 (08:08)
[2018-04-06] MEDS: ALVIMOPAN 12 MG CAPSULE (ENTEREG) PO ×4 (08:08→20:58)
[2018-04-06] MEDS: ENOXAPARIN 40 MG/0.4 ML SYRINGE (J1650) SC ×2 (08:08)
[2018-04-06 10:49] LABS: BASO # 0.1 10^3/uL (0.0-0.2); EOS # 0.5 10^3/uL (0.0-0.50); EOS % 5.6 % (0.0-3.0); HEMATOCRIT 41.4 % (42.0-52.0); LYMPH % 22.3 % (24.0-44.0); MEAN CORPUSCULAR HEMOGLOBIN 27.9 pg (27.0-33.0); MEAN CORPUSCULAR HGB CONC 33.8 g/dl (32.0-36.5); MEAN CORPUSCULAR VOLUME 82.5 fl (80.0-96.0); MONO # 1.2 10^3/uL (0.0-0.8); MONO % 13.5 % (0.0-5.0); NEUTROPHILS # 5.2 10^3/uL (1.8-7.7); NEUTROPHILS % 56.6 % (36.0-66.0); PLATELET COUNT, AUTOMATED 284 10^3/uL (150-450); RED BLOOD COUNT 5.02 10^6/uL (4.30-6.10); RED CELL DISTRIBUTION WIDTH 12.2 % (11.5-14.5); WHITE BLOOD COUNT 9.1 10^3/uL (4.0-10.0)
[2018-04-06 11:20] LABS: ALBUMIN 3.3 GM/DL (3.2-5.2); ALBUMIN/GLOBULIN RATIO 0.97 (1.00-1.93); ALKALINE PHOSPHATASE 69 U/L (45-117); ALT/SGPT 84 U/L (12-78); ANION GAP 8 MEQ/L (8-16); AST/SGOT 42 U/L (7-37); BILIRUBIN,TOTAL 0.6 MG/DL (0.2-1.0); BLOOD UREA NITROGEN 13 MG/DL (7-18); CARBON DIOXIDE LEVEL 27 MEQ/L (21-32); CHLORIDE LEVEL 104 MEQ/L (98-107); GLOMERULAR FILTRATION RATE > 60.0 (>60); GLUCOSE, FASTING 88 MG/DL (70-100); POTASSIUM SERUM 4.2 MEQ/L (3.5-5.1); SODIUM LEVEL 139 MEQ/L (136-145); TOTAL PROTEIN 6.7 GM/DL (6.4-8.2)
[2018-04-06] MEDS: PANTOPRAZOLE 40MG TAB (PROTONIX) PO ×2 (11:35)
[2018-04-06] MEDS: GASTROGRAFIN SOLUTION 30ML PO ×4 (11:35→12:15)
[2018-04-06] MEDS: METOCLOPRAMIDE 10 MG TAB PO ×4 (13:13→20:58)
[2018-04-07] MEDS: diphenhydrAMINE 25 MG CAP PO ×2 (01:22)
[2018-04-07] MEDS: SODIUM CHLORIDE 0.9% INJ 10 ML SYR IV ×6 (06:00→19:01)
[2018-04-07] MEDS: METOCLOPRAMIDE 10 MG TAB PO ×8 (06:00→20:46)
[2018-04-07] MEDS: ALVIMOPAN 12 MG CAPSULE (ENTEREG) PO ×4 (09:00→20:45)
[2018-04-07] MEDS: PANTOPRAZOLE 40MG TAB (PROTONIX) PO ×2 (09:00)
[2018-04-07] MEDS: ENOXAPARIN 40 MG/0.4 ML SYRINGE (J1650) SC ×2 (13:03)
[2018-04-08] MEDS: METOCLOPRAMIDE 10 MG TAB PO ×4 (06:00→06:19)
[2018-04-08] MEDS: SODIUM CHLORIDE 0.9% INJ 10 ML SYR IV ×2 (06:19)
== END 2018-04-08 11:28 | disposition home or self-care (01) | DRG 337 ==
LOC: M PCU 03-17 00:13 → M MSPAV 03-19 17:44 → M ED 12:36 → M MSPAV 03-19 17:53 → M ED INP 19:48 → M MSPAV 22:52
PROC: 0DNU4ZZ Release Omentum, Percutaneous Endoscopic Approach (ICD-10-PCS; principal; 2018-04-01 07:30)
PROC: 0WUF4JZ Supplement Abdominal Wall with Synthetic Substitute, Percutaneous Endoscopic Approach (ICD-10-PCS; 2018-04-01 07:30)
PROC: 02HV33Z Insertion of Infusion Device into Superior Vena Cava, Percutaneous Approach (ICD-10-PCS; 2018-04-01 07:39)
PROC: 3E0336Z Introduction of Nutritional Substance into Peripheral Vein, Percutaneous Approach (ICD-10-PCS; 2018-04-01 07:39)
DX: K43.3 Parastomal hernia with obstruction, without gangrene (principal); E78.5 Hyperlipidemia, unspecified; K43.9 Ventral hernia without obstruction or gangrene; E66.9 Obesity, unspecified; Z89.612 Acquired absence of left leg above knee; Z91.82 Personal history of military deployment; Z89.611 Acquired absence of right leg above knee; Z79.899 Other long term (current) drug therapy; Z87.828 Personal history of other (healed) physical injury and trauma

== ENCOUNTER 2018-04-18 11:57 | Emergency (ER) | payer OTHER ==
[2018-04-18] MEDS: ONDANSETRON 4MG/2ML VIAL (J2405) IV (13:12)
[2018-04-18] MEDS: NS 1,000 ML IV (13:12)
[2018-04-18 13:18] LABS: BASO # 0.1 10^3/uL (0.0-0.2); EOS # 0.3 10^3/uL (0.0-0.50); EOS % 4.5 % (0.0-3.0); HEMATOCRIT 39.4 % (42.0-52.0); HEMOGLOBIN 13.6 g/dl (13.5-17.5); IMMATURE GRANULOCYTE % 0.7 % (0-3.0); LYMPH # 1.7 10^3/uL (1.5-6.5); LYMPH % 24.2 % (24.0-44.0); MEAN CORPUSCULAR HGB CONC 34.5 g/dl (32.0-36.5); MEAN CORPUSCULAR VOLUME 81.1 fl (80.0-96.0); MONO # 0.7 10^3/uL (0.0-0.8); MONO % 9.5 % (0.0-5.0); NEUTROPHILS # 4.3 10^3/uL (1.8-7.7); NEUTROPHILS % 60.1 % (36.0-66.0); PLATELET COUNT, AUTOMATED 327 10^3/uL (150-450); RED BLOOD COUNT 4.86 10^6/uL (4.30-6.10); RED CELL DISTRIBUTION WIDTH 12.7 % (11.5-14.5); WHITE BLOOD COUNT 7.1 10^3/uL (4.0-10.0)
[2018-04-18 13:45] LABS: ALBUMIN 3.5 GM/DL (3.2-5.2); ALBUMIN/GLOBULIN RATIO 0.95 (1.00-1.93); ALKALINE PHOSPHATASE 54 U/L (45-117); ALT/SGPT 28 U/L (12-78); ANION GAP 8 MEQ/L (8-16); AST/SGOT 16 U/L (7-37); BILIRUBIN,DIRECT < 0.1 MG/DL (0.0-0.2); BILIRUBIN,TOTAL 0.6 MG/DL (0.2-1.0); BLOOD UREA NITROGEN 10 MG/DL (7-18); CARBON DIOXIDE LEVEL 24 MEQ/L (21-32); CHLORIDE LEVEL 109 MEQ/L (98-107); CREATININE FOR GFR 0.53 MG/DL (0.70-1.30); GLOMERULAR FILTRATION RATE > 60.0 (>60); GLUCOSE, FASTING 97 MG/DL (70-100); LIPASE 110 U/L (73-393); POTASSIUM SERUM 3.9 MEQ/L (3.5-5.1); SODIUM LEVEL 141 MEQ/L (136-145); TOTAL PROTEIN 7.2 GM/DL (6.4-8.2)
[2018-04-18] MEDS ORDERED: ISOVUE-370 76% 100ML VIAL (Q9967) As Ordered (13:47)
[2018-04-18] MEDS: METOCLOPRAMIDE INJ 10MG/2ML VIAL (J2765) IV (15:49)
== END 2018-04-18 16:03 | disposition home or self-care (01) ==
LOC: M ED 11:57
DX: R11.2 Nausea with vomiting, unspecified (principal); R19.7 Diarrhea, unspecified; K76.0 Fatty (change of) liver, not elsewhere classified; F43.10 Post-traumatic stress disorder, unspecified; Z87.828 Personal history of other (healed) physical injury and trauma; E29.1 Testicular hypofunction; Z89.612 Acquired absence of left leg above knee; Z89.611 Acquired absence of right leg above knee; Z93.2 Ileostomy status
CPT/HCPCS: J2405

== ENCOUNTER 2018-06-10 11:40 | Emergency (ER) | payer OTHER ==
[~2018-06-10 11:40] MED LIST changes: +ANDR1.62 TD; -AUGM875T27 PO; +AUGM875T28 PO; -GASTROGRAFIN SOLUTION 30ML (Q9963) As Ordered ONE; -ISOVUE-370 76% 100ML VIAL (Q9967) As Ordered ONE; +PRAV10TA4 PO; +PRAV40TA2 PO; +VITA1CAP25 PO; +VITMTA PO; +ZOFR8TAB22 PO
[2018-06-10] MEDS ORDERED: ONDANSETRON 4MG/2ML VIAL (J2405) IV ONE (12:30)
[2018-06-10] MEDS ORDERED: NS 1,000 ML IV ONE (12:30)
[2018-06-10 13:22] LABS: BASO # 0.1 10^3/uL (0.0-0.2); EOS # 0.1 10^3/uL (0.0-0.50); EOS % 1.1 % (0.0-3.0); HEMATOCRIT 42.1 % (42.0-52.0); HEMOGLOBIN 14.4 g/dl (13.5-17.5); LYMPH # 1.5 10^3/uL (1.5-6.5); LYMPH % 23.6 % (24.0-44.0); MEAN CORPUSCULAR HEMOGLOBIN 27.5 pg (27.0-33.0); MEAN CORPUSCULAR HGB CONC 34.2 g/dl (32.0-36.5); MEAN CORPUSCULAR VOLUME 80.3 fl (80.0-96.0); MONO # 0.5 10^3/uL (0.0-0.8); MONO % 7.4 % (0.0-5.0); NEUTROPHILS # 4.1 10^3/uL (1.8-7.7); NEUTROPHILS % 66.4 % (36.0-66.0); PLATELET COUNT, AUTOMATED 278 10^3/uL (150-450); RED BLOOD COUNT 5.24 10^6/uL (4.30-6.10); WHITE BLOOD COUNT 6.2 10^3/uL (4.0-10.0)
[2018-06-10 13:53] LABS: ALBUMIN 4.1 GM/DL (3.2-5.2); ALT/SGPT 41 U/L (12-78); AMYLASE 37 U/L (25-115); BILIRUBIN,DIRECT 0.2 MG/DL (0.0-0.2); BILIRUBIN,TOTAL 0.7 MG/DL (0.2-1.0); BLOOD UREA NITROGEN 7 MG/DL (7-18); CALCIUM LEVEL 8.9 MG/DL (8.5-10.1); CARBON DIOXIDE LEVEL 23 MEQ/L (21-32); CHLORIDE LEVEL 107 MEQ/L (98-107); CK-MB VALUE MASS < 1.0 NG/ML (<3.6); CPK CREATINE PHOSPHOKINASE 53 U/L (39-308); CREATININE FOR GFR 0.54 MG/DL (0.70-1.30); GLOMERULAR FILTRATION RATE > 60.0 (>60); GLUCOSE, FASTING 90 MG/DL (70-100); LIPASE 72 U/L (73-393); MB/CK RELATIVE INDEX 1.89 (< OR =4); POTASSIUM SERUM 4.1 MEQ/L (3.5-5.1); SODIUM LEVEL 140 MEQ/L (136-145); TOTAL PROTEIN 7.1 GM/DL (6.4-8.2); TROPONIN I < 0.02 NG/ML (< 0.10)
[2018-06-10] MEDS ORDERED: ISOVUE-370 76% 100ML VIAL (Q9967) As Ordered ONE (13:59)
--- NOTE | 2018-06-10 14:53 | REP ---
CT ABDOMEN AND PELVIS WITH IV BUT WITHOUT ORAL CONTRAST: HISTORY: Abdominal discomfort. Vomiting. Comparison CT study April 18, 2018. CONTRAST DOSE: 100 mL of intravenous Isovue 370. CT FINDINGS: Preliminary digital academic services professional radiograph demonstrate that the patient is status post disarticulation and amputation of the right hip. There are clips in the right abdomen. An enterostomy ring is seen in the left abdomen. The bowel gas pattern is unremarkable. The lung bases are clear. There is minimal linear fibrosis in the left lung base. There is mild diffuse fatty infiltration of the liver. No focal liver lesion is seen. The gallbladder is unremarkable. No pancreatic abnormality is seen. Normal adrenal glands are seen bilaterally. There is a small accessory splenule along the inferior margin of the spleen. The spleen is otherwise unremarkable. The kidneys are morphologically intact and enhance symmetrically. No hydronephrosis or renal calculus is seen. A normal appendix is noted retrocecal. The patient status post ventral hernia repair and left lower quadrant colostomy. No abdominal wall defect is appreciated apart from the colostomy. There is some residual fat streaking and dermal thickening about the left lower quadrant colostomy in the left anterior abdominal wall. This is improved from April 18, 2018. There are scattered anterior surgical clips. Postsurgical/post-traumatic changes are seen in the right pelvis. Soft tissue irregularity is seen in the right pelvis and ischial region. IMPRESSION: No acute intra-abdominal abnormality. Fatty infiltration of the liver. Left lower quadrant colostomy with some edema and dermal thickening in the soft tissue of the abdominal wall around the colostomy. This is improved. Status post ventral hernia repair. Otherwise unchanged. Electronically Signed by Mike Singleton MD 06/10/2018 05:17 P
[2018-06-10] MEDS ORDERED: ONDA4TAB6 PO (15:34)
[2018-06-10 15:47] VITALS: BP 105/63
--- NOTE | 2018-06-10 17:55 | ECGEPIP ---
Stationary ECG Study [facility] - ED Test Date: 2018-06-10 Pat Name: KLAUDIA ALLEN Department: Room: - Gender: M Subscription Clerk: TC : 1990 Requested By: DANDRE Mccann PA-C Order Number: [id number] Reading MD: Kamilla Gutierrez Measurements Intervals [place] Rate: 80 P: 8 [place]: 188 QRS: -83 QRSD: 92 T: 10 QT: 395 QTc: 457 Interpretive Statements SINUS RHYTHM PATTERN CONSISTENT WITH PULMONARY DISEASE INFERIOR MYOCARDIAL INFARCTION, PROBABLY OLD MODERATE T-WAVE ABNORMALITY, CONSIDER ISCHEMIA COMPARED 04/20/16 Electronically Signed On 06-10-2018 17:54:59 EST by Kamilla Gutierrez
== END 2018-06-10 15:50 | disposition home or self-care (01) ==
LOC: M ED 11:40
DX: R11.2 Nausea with vomiting, unspecified (principal); K21.9 Gastro-esophageal reflux disease without esophagitis
CPT/HCPCS: 74177; 80048; 80076; 82150; 82550; 82553; 83605; 83690; 84484; 85025; 93005; 96361; 96374; 99284; J2405; Q9967

== ENCOUNTER 2019-01-12 20:20 | Observation (INO) | payer MEDICARE, OTHER ==
[~2019-01-12 20:20] MED LIST changes: -NORC1TAB4 PO; +NORC1TAB7 PO; +ONDA4TAB6 PO
[2019-01-12 21:03] LABS: BASO # 0.1 10^3/uL (0.0-0.2); BASO % 0.7 % (0.0-1.0); EOS # 0.1 10^3/uL (0.0-0.50); HEMATOCRIT 41.4 % (42.0-52.0); HEMOGLOBIN 14.3 g/dl (13.5-17.5); LYMPH # 1.6 10^3/uL (1.5-6.5); LYMPH % 19.3 % (24.0-44.0); MEAN CORPUSCULAR HEMOGLOBIN 28.7 pg (27.0-33.0); MEAN CORPUSCULAR HGB CONC 34.5 g/dl (32.0-36.5); MONO # 0.7 10^3/uL (0.0-0.8); MONO % 7.9 % (0.0-5.0); NEUTROPHILS # 5.9 10^3/uL (1.8-7.7); NEUTROPHILS % 70.3 % (36.0-66.0); PLATELET COUNT, AUTOMATED 285 10^3/uL (150-450); RED BLOOD COUNT 4.99 10^6/uL (4.30-6.10); WHITE BLOOD COUNT 8.4 10^3/uL (4.0-10.0)
[2019-01-12 21:38] LABS: BLOOD UREA NITROGEN 12 MG/DL (7-18); CALCIUM LEVEL 9.4 MG/DL (8.5-10.1); CARBON DIOXIDE LEVEL 23 MEQ/L (21-32); CHLORIDE LEVEL 107 MEQ/L (98-107); CK-MB VALUE MASS < 1.0 NG/ML (<3.6); CPK CREATINE PHOSPHOKINASE 171 U/L (39-308); CREATININE FOR GFR 0.57 MG/DL (0.70-1.30); ETHYL ALCOHOL (ETHANOL) < 0.003 % (0.000-0.010); FREE T4 1.11 NG/DL (0.76-1.46); GLOMERULAR FILTRATION RATE > 60.0 (>60); GLUCOSE, FASTING 82 MG/DL (70-100); MAGNESIUM LEVEL 2.2 MG/DL (1.8-2.4); MB/CK RELATIVE INDEX 0.58 (< OR =4); POTASSIUM SERUM 3.9 MEQ/L (3.5-5.1); SODIUM LEVEL 137 MEQ/L (136-145); TROPONIN I < 0.02 NG/ML (< 0.10)
[2019-01-12] MEDS ORDERED: ISOVUE-370 76% 100ML VIAL (Q9967) As Ordered ONE (21:51)
--- NOTE | 2019-01-12 22:50 | REPVR ---
EXAM: CT Head Without Contrast EXAM DATE/TIME: 01/12/2019 10:23 PM CLINICAL HISTORY: 28 years old, male; Syncope and collapse TECHNIQUE: Imaging protocol: Computed tomography images of the head without contrast. Radiation optimization: All CT scans at this facility use at least one of these dose optimization techniques: automated exposure control; mA and/or kV adjustment per patient size (includes targeted exams where dose is matched to clinical indication); or iterative reconstruction. COMPARISON: No relevant prior studies available. FINDINGS: Brain: Normal. No hemorrhage. Unremarkable white matter. No mass effect. Ventricles: Normal. No ventriculomegaly. Bones/joints: Unremarkable. No acute fracture. Sinuses: Visualized sinuses are unremarkable. No fluid levels. Mastoid air cells: Visualized mastoid air cells are well aerated. No mastoid effusion. Soft tissues: Unremarkable. IMPRESSION: No acute intracranial abnormality given limitation of motion artifact in posterior fossa.. Electronically signed by: Randi Spencer On 01/12/2019 22:49:57 PM
--- NOTE | 2019-01-12 23:31 | REPVR ---
EXAM: CT Abdomen and Pelvis With Contrast EXAM DATE/TIME: 01/12/2019 10:23 PM CLINICAL HISTORY: 28 years old, male; Abdominal pain; Generalized; Prior surgery; Additional info: Syncope TECHNIQUE: Imaging protocol: Computed tomography images of the abdomen and pelvis with intravenous contrast. Radiation optimization: All CT scans at this facility use at least one of these dose optimization techniques: automated exposure control; mA and/or kV adjustment per patient size (includes targeted exams where dose is matched to clinical indication); or iterative reconstruction. Contrast material: ISOVUE 370; Contrast volume: 100 ml; Contrast route: IV; COMPARISON: CT ABD/PEL W/IV CONTRAST ONLY 06/10/2018 1:59 PM FINDINGS: Lungs: Minimally near fibrosis in the left lung base. Liver: Mild diffuse fatty infiltration of the liver. Gallbladder and bile ducts: Normal. No calcified stones. No ductal dilation. Pancreas: Normal. No ductal dilation. Spleen: Normal. No splenomegaly. Adrenals: Normal. No mass. Kidneys and ureters: Normal. No hydronephrosis. Stomach and bowel: Partial colectomy. Nondistention versus diffuse mild thickening of the colon. Nondistention versus mild thickening of the stomach. Left lower quadrant colostomy. There is some residual fat streaking and dermal thickening about the left lower quadrant colostomy in the left anterior abdominal wall. Appendix: No evidence of appendicitis. Intraperitoneal space: An enterostomy ring is seen in the left abdomen. Scattered anterior surgical clips. Postsurgical/post-traumatic changes are seen in the right pelvis. Vasculature: Normal. No abdominal aortic aneurysm. Lymph nodes: Normal. No enlarged lymph nodes. Bladder: Unremarkable as visualized. Reproductive: Unremarkable as visualized. Bones/joints: Old healed pars interarticularis defect at L5. 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 Soft tissues: The patient status post ventral hernia repair. Soft tissue irregularity is seen in the right pelvis and ischial region. IMPRESSION: Partial colectomy. Nondistention versus diffuse mild thickening of the colon. Nondistention versus mild thickening of the stomach. Left lower quadrant colostomy. Electronically signed by: Randi Spencer On 01/12/2019 23:31:17 PM
[2019-01-13] MEDS ORDERED: METOCLOPRAMIDE INJ 10MG/2ML VIAL (J2765) IV PRN (00:45)
[2019-01-13] MEDS: NS 1,000 ML IV SCH ×2 (00:57→06:21)
[2019-01-13] MEDS: PANTOPRAZOLE 40MG INJ (PROTONIX) (C9113) IV SCH ×2 (01:11→09:00)
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
--- NOTE | 2019-01-13 05:34 | ECGEPIP ---
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
[2019-01-13] MEDS ORDERED: HEPARIN SOD (PORCINE) 5000 UNITS/ML VIAL SC SCH (06:00)
[2019-01-13 06:27] LABS: HEMATOCRIT 36.6 % (42.0-52.0); HEMOGLOBIN 12.7 g/dl (13.5-17.5); MEAN CORPUSCULAR HEMOGLOBIN 28.9 pg (27.0-33.0); MEAN CORPUSCULAR HGB CONC 34.7 g/dl (32.0-36.5); MEAN CORPUSCULAR VOLUME 83.2 fl (80.0-96.0); PLATELET COUNT, AUTOMATED 223 10^3/uL (150-450); WHITE BLOOD COUNT 7.1 10^3/uL (4.0-10.0)
[2019-01-13 06:29] VITALS: BP 111/71
[2019-01-13 06:59] LABS: BLOOD UREA NITROGEN 9 MG/DL (7-18); CALCIUM LEVEL 8.2 MG/DL (8.5-10.1); CARBON DIOXIDE LEVEL 24 MEQ/L (21-32); CHLORIDE LEVEL 112 MEQ/L (98-107); CPK CREATINE PHOSPHOKINASE 114 U/L (39-308); CREATININE FOR GFR 0.53 MG/DL (0.70-1.30); GLOMERULAR FILTRATION RATE > 60.0 (>60); GLUCOSE, FASTING 85 MG/DL (70-100); POTASSIUM SERUM 3.5 MEQ/L (3.5-5.1); SODIUM LEVEL 140 MEQ/L (136-145)
--- NOTE | 2019-01-13 12:04 | REP ---
Portable chest, 09:01 p.m., single AP view with the patient upright: Comparison is 03/16/2018. Lung vargas are clear. Cardiac size is enlarged, unchanged. The marilia, mediastinum, skeletal structures are unremarkable. Impression: Chronic cardiomegaly per Lung vargas are clear. Electronically Signed by Sebas Javed MD 01/13/2019 07:41 A
--- NOTE | 2019-01-13 16:33 | DS.PDOC ---
Discharge Summary General Date of Admission Jan 12, 2019 at 20:21 Date of Discharge 01/13/19 Attending Physician: MYAH BURGESS DO Specialist/Consultants Involve: Jose Armendariz Discharge Summary PROCEDURES PERFORMED DURING STAY: None ADMITTING DIAGNOSES: 1. Syncope. DISCHARGE DIAGNOSES: 1. Syncope COMPLICATIONS/CHIEF COMPLAINT: Syncope. HISTORY OF PRESENT ILLNESS: Patient is a 28 year old male presenting with chief complaint of unwitnessed syncope. He states that earlier today he was laying on the couch and the next thing he knew he was on the floor. Later in the day he was picking up children's toys and again passed out prompting him to go to the emergency department. This has never happened before and he experienced no prodromal symptoms prior to either event including headache, chest pain, difficulty breathing, palpitations, or weakness. He admits to some increased confusion following the periods where he wakes up that lasted a few minutes and notes that he has felt dizzy most of the day and also admits to non-bloody, non-bilious emesis with any oral intake for the last 3 days. He states he has been unable to hold down solid and liquid foods, but this is somewhat normal for him as periods of vomiting happen at least once a month and usually resolves on their own. He also admits to chronic intermittent mid gastric abdominal pain without radiation that self resolves. Despite his poor PO intake the past 3 days he states he continues to have output from his colostomy. Patient has a history at this facility as he had a incarcerated parastomal hernia repair in March 2018 with a 28 day admission. He states after this is when he began to experience the intermittent abdominal pain and the monthly nausea/vomiting. HOSPITAL COURSE: Patient left the hospital AGAINST MEDICAL ADVICE. I explained t o the patient all medical negative consequences of his decision including neurologic and cardiologic complications and . DISCHARGE MEDICATIONS: Please see below. ALLERGIES: Please see below. PHYSICAL EXAMINATION ON DISCHARGE: GENERAL: Denies fevers, recent unexpected weight change, night sweats, hemoptysis. Admits to chills HEENT: Denies headache, vision changes, hearing loss, sore throat. Admits to dizziness/lightheadedness CARDIOVASCULAR: Denies chest pain, palpitations, orthopnea RESPIRATORY: Denies shortness of breath, wheezing, cough GASTROINTESTINAL: denies constipation, diarrhea, bloody stool. As per HPI, admits to nausea, vomiting, abdominal pain. GENITOURINARY: Denies dysuria,urinary urgency, hematuria. MUSCULOSKELETAL: Denies muscle/joint pain, weakness, stiffness NEUROLOGICAL: Denies any numbness/tingling, focal weakness, denies hx of seizures. Admits to syncope LABORATORY DATA: Please see below. IMAGING:CT Head Without Contrast EXAM DATE/TIME: 01/12/2019 10:23 PM CLINICAL HISTORY: 28 years old, male; Syncope and collapse TECHNIQUE: Imaging protocol: Computed tomography images of the head without contrast. Radiation optimization: All CT scans at this facility use at least one of these dose optimization techniques: automated exposure control; mA and/or kV adjustment per patient size (includes targeted exams where dose is matched to clinical indication); or iterative reconstruction. COMPARISON: No relevant prior studies available. FINDINGS: Brain: Normal. No hemorrhage. Unremarkable white matter. No mass effect. Ventricles: Normal. No ventriculomegaly. Bones/joints: Unremarkable. No acute fracture. Sinuses: Visualized sinuses are unremarkable. No fluid levels. Mastoid air cells: Visualized mastoid air cells are well aerated. No mastoid effusion. Soft tissues: Unremarkable. IMPRESSION: No acute intracranial abnormality given limitation of motion artifact in posterior fossa.. Electronically signed by: Merle Lawson On 01/12/2019 22:49:57 PM DD: MERLE LAWSON MD 01/12/192222 DT: STEFANIA 01/12/192248 DS: EDI 01/12/192248 EXAM: CT Abdomen and Pelvis With Contrast EXAM DATE/TIME: 01/12/2019 10:23 PM CLINICAL HISTORY: 28 years old, male; Abdominal pain; Generalized; Prior surgery; Additional info: Syncope TECHNIQUE: Imaging protocol: Computed tomography images of the abdomen and pelvis with intravenous contrast. Radiation optimization: All CT scans at this facility use at least one of these dose optimization techniques: automated exposure control; mA and/or kV adjustment per patient size (includes targeted exams where dose is matched to clinical indication); or iterative reconstruction. Contrast material: ISOVUE 370; Contrast volume: 100 ml; Contrast route: IV; COMPARISON: CT ABD/PEL W/IV CONTRAST ONLY 06/10/2018 1:59 PM FINDINGS: Lungs: Minimally near fibrosis in the left lung base. Liver: Mild diffuse fatty infiltration of the liver. Gallbladder and bile ducts: Normal. No calcified stones. No ductal dilation. Pancreas: Normal. No ductal dilation. Spleen: Normal. No splenomegaly. Adrenals: Normal. No mass. Kidneys and ureters: Normal. No hydronephrosis. Stomach and bowel: Partial colectomy. Nondistention versus diffuse mild thickening of the colon. Nondistention versus mild thickening of the stomach. Left lower quadrant colostomy. There is some residual fat streaking and dermal thickening about the left lower quadrant colostomy in the left anterior abdominal wall. Appendix: No evidence of appendicitis. Intraperitoneal space: An enterostomy ring is seen in the left abdomen. Scattered anterior surgical clips. Postsurgical/post-traumatic changes are seen in the right pelvis. Vasculature: Normal. No abdominal aortic aneurysm. Lymph nodes: Normal. No enlarged lymph nodes. Bladder: Unremarkable as visualized. Reproductive: Unremarkable as visualized. Bones/joints: Old healed pars interarticularis defect at L5. 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 Soft tissues: The patient status post ventral hernia repair. Soft tissue irregularity is seen in the right pelvis and ischial region. IMPRESSION: Partial colectomy. Nondistention versus diffuse mild thickening of the colon. Nondistention versus mild thickening of the stomach. Left lower quadrant colostomy. Electronically signed by: Merle Lawson On 01/12/2019 23:31:17 PM ACTIVITY: As tolerated DIET: Regular DISCHARGE PLAN: Patient left the hospital AGAINST MEDICAL ADVICE DISPOSITION: Against Medical Advice. DISCHARGE INSTRUCTIONS: 1. Follow-up with PCP in one day DISCHARGE CONDITION: Stable TIME SPENT ON DISCHARGE: Greater than 20 minutes. Vital Signs/I&Os Vital Signs Date Time Temp Pulse Resp B/P (MAP) Pulse Ox O2 Delivery O2 Flow Rate FiO2 01/13/19 06:29 98.1 70 18 111/71 (84) 99 Laboratory Data Labs 24H Laboratory Tests 2 01/12/19 20:41: Bedside Glucose (Misc Panel) 84 01/12/19 20:45: Immature Granulocyte % (Auto) 0.8, White Blood Count 8.4, Red Blood Count 4.99, Hemoglobin 14.3, Hematocrit 41.4L, Mean Corpuscular Volume 83.0, Mean Corpuscular Hemoglobin 28.7, Mean Corpuscular Hemoglobin Concent 34.5, Red Cell Distribution Width 12.3, Platelet Count 285, Neutrophils (%) (Auto) 70.3H, Lymphocytes (%) (Auto) 19.3L, Monocytes (%) (Auto) 7.9H, Eosinophils (%) (Auto) 1.0, Basophils (%) (Auto) 0.7, Neutrophils # (Auto) 5.9, Lymphocytes # (Auto) 1.6, Monocytes # (Auto) 0.7, Eosinophils # (Auto) 0.1, Basophils # (Auto) 0.1, Nucleated Red Blood Cells % (auto) 0.0, Anion Gap 7L, Glomerular Filtration Rate > 60.0, Blood Urea Nitrogen 12, Creatinine 0.57L, Sodium Level 137, Potassium Level 3.9, Chloride Level 107, Carbon Dioxide Level 23, Calcium Level 9.4, Total Creatine Kinase 171, Magnesium Level 2.2, Creatine Kinase MB < 1.0, Creatine Kinase MB Relative Index 0.58, Troponin I < 0.02, Thyroid Stimulating Hormone (TSH) 1.300, Free Thyroxine 1.11, Ethyl Alcohol Level < 0.003 01/13/19 06:15: Nucleated Red Blood Cells % (auto) 0.0, Anion Gap 4L, Glomerular Filtration Rate > 60.0, Blood Urea Nitrogen 9, Creatinine 0.53L, Sodium Level 140, Potassium Level 3.5, Chloride Level 112H, Carbon Dioxide Level 24, Calcium Level 8.2L, Total Creatine Kinase 114, Lactic Acid Level 0.7, Prolactin 20.0H CBC/BMP Laboratory Tests 01/12/19 20:45 Red Blood Count 4.99, Mean Corpuscular Volume 83.0, Mean Corpuscular Hemoglobin 28.7, Mean Corpuscular Hemoglobin Concent 34.5, Red Cell Distribution Width 12.3, Neutrophils (%) (Auto) 70.3 H, Lymphocytes (%) (Auto) 19.3 L, Monocytes (%) (Auto) 7.9 H, Eosinophils (%) (Auto) 1.0, Basophils (%) (Auto) 0.7, Neutrophils # (Auto) 5.9, Lymphocytes # (Auto) 1.6, Monocytes # (Auto) 0.7, Eosinophils # (Auto) 0.1, Basophils # (Auto) 0.1, Calcium Level 9.4, Total Creatine Kinase 171 01/13/19 06:15 Red Blood Count 4.40, Mean Corpuscular Volume 83.2, Mean Corpuscular Hemoglobin 28.9, Mean Corpuscular Hemoglobin Concent 34.7, Red Cell Distribution Width 12.4, Calcium Level 8.2 L FSBS Laboratory Tests Test 01/12/19 20:41 Range/Units Bedside Glucose (Misc Panel) 84 70-105 MG/DL Discharge Medications No Active Prescriptions or Reported Meds Allergies Coded Allergies: No Known Allergies (Unverified , 01/12/19) MYAH BURGESS DO Jan 13, 2019 16:33
== END 2019-01-13 11:08 | disposition left against medical advice (07) ==
LOC: M ED 20:20 → M ED INP 20:21
PROVIDERS: ADMIT Internal Medicine Nephrology; ATTEND Internal Medicine Nephrology
DX: R55 Syncope and collapse (principal); R11.2 Nausea with vomiting, unspecified; R10.13 Epigastric pain; Z93.3 Colostomy status; Z89.611 Acquired absence of right leg above knee; Z87.828 Personal history of other (healed) physical injury and trauma
CPT/HCPCS: 36415; 70450; 71045; 74177; 80048; 82550; 82553; 83605; 83735; 84146; 84439; 84443; 84484; 85025; 85027; 93005; 93041; 94760; 96374; 96375; 99285; C9113; G0378; G0480; J2765; Q9967

== ENCOUNTER 2019-01-13 18:56 | Observation (INO) | payer MEDICARE, OTHER ==
[2019-01-13] MEDS ORDERED: NS 1,000 ML IV ONE (19:45)
[2019-01-13 20:14] LABS: BASO # 0.1 10^3/uL (0.0-0.2); BASO % 0.7 % (0.0-1.0); EOS # 0.1 10^3/uL (0.0-0.50); EOS % 1.3 % (0.0-3.0); HEMATOCRIT 38.6 % (42.0-52.0); HEMOGLOBIN 13.3 g/dl (13.5-17.5); LYMPH # 1.9 10^3/uL (1.5-6.5); LYMPH % 25.5 % (24.0-44.0); MEAN CORPUSCULAR HEMOGLOBIN 28.5 pg (27.0-33.0); MEAN CORPUSCULAR HGB CONC 34.5 g/dl (32.0-36.5); MEAN CORPUSCULAR VOLUME 82.7 fl (80.0-96.0); MONO # 0.7 10^3/uL (0.0-0.8); MONO % 9.3 % (0.0-5.0); NEUTROPHILS # 4.7 10^3/uL (1.8-7.7); NEUTROPHILS % 62.5 % (36.0-66.0); PLATELET COUNT, AUTOMATED 260 10^3/uL (150-450); RED BLOOD COUNT 4.67 10^6/uL (4.30-6.10); WHITE BLOOD COUNT 7.5 10^3/uL (4.0-10.0)
[2019-01-13 20:45] LABS: BLOOD UREA NITROGEN 6 MG/DL (7-18); CALCIUM LEVEL 8.5 MG/DL (8.5-10.1); CARBON DIOXIDE LEVEL 22 MEQ/L (21-32); CHLORIDE LEVEL 111 MEQ/L (98-107); CK-MB VALUE MASS < 1.0 NG/ML (<3.6); CPK CREATINE PHOSPHOKINASE 109 U/L (39-308); CREATININE FOR GFR 0.49 MG/DL (0.70-1.30); GLOMERULAR FILTRATION RATE > 60.0 (>60); GLUCOSE, FASTING 83 MG/DL (70-100); MB/CK RELATIVE INDEX 0.92 (< OR =4); POTASSIUM SERUM 3.3 MEQ/L (3.5-5.1); SODIUM LEVEL 141 MEQ/L (136-145); TROPONIN I < 0.02 NG/ML (< 0.10)
[2019-01-13] MEDS ORDERED: PROCHLORPERAZINE 5 MG TAB (S0183) PO PRN (21:30)
[2019-01-13] MEDS ORDERED: NS 1,000 ML IV SCH (22:00)
[2019-01-13] MEDS ORDERED: POTASSIUM CHLORIDE 10 MEQ SR TABLET PO ONE (22:00)
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
[2019-01-13] MEDS: PANTOPRAZOLE 40MG INJ (PROTONIX) (C9113) IV SCH (23:28)
[2019-01-13] MEDS: KCL 40MEQ in NS 1000ML 1,000 ML IV SCH (23:29)
[2019-01-14 00:28] VITALS: BP 111/66
[2019-01-14 06:00] VITALS: BP 104/62
[2019-01-14 06:16] LABS: HEMATOCRIT 36.3 % (42.0-52.0); HEMOGLOBIN 12.5 g/dl (13.5-17.5); MEAN CORPUSCULAR HEMOGLOBIN 28.2 pg (27.0-33.0); MEAN CORPUSCULAR HGB CONC 34.4 g/dl (32.0-36.5); MEAN CORPUSCULAR VOLUME 81.9 fl (80.0-96.0); PLATELET COUNT, AUTOMATED 222 10^3/uL (150-450); RED BLOOD COUNT 4.43 10^6/uL (4.30-6.10); WHITE BLOOD COUNT 6.2 10^3/uL (4.0-10.0)
[2019-01-14 06:45] LABS: ALBUMIN 3.4 GM/DL (3.2-5.2); ALT/SGPT 18 U/L (12-78); BILIRUBIN,TOTAL 0.6 MG/DL (0.2-1.0); BLOOD UREA NITROGEN 5 MG/DL (7-18); CALCIUM LEVEL 8.3 MG/DL (8.5-10.1); CARBON DIOXIDE LEVEL 23 MEQ/L (21-32); CHLORIDE LEVEL 112 MEQ/L (98-107); CREATININE FOR GFR 0.51 MG/DL (0.70-1.30); GLOMERULAR FILTRATION RATE > 60.0 (>60); GLUCOSE, FASTING 93 MG/DL (70-100); POTASSIUM SERUM 3.4 MEQ/L (3.5-5.1); SODIUM LEVEL 142 MEQ/L (136-145); TOTAL PROTEIN 6.8 GM/DL (6.4-8.2)
[2019-01-14] MEDS: ENOXAPARIN 40 MG/0.4 ML SYRINGE (J1650) SC SCH (08:07)
[2019-01-14] MEDS: PANTOPRAZOLE 40MG INJ (PROTONIX) (C9113) IV SCH (08:07)
[2019-01-14 14:00] VITALS: BP 140/86
[2019-01-14] MEDS ORDERED: POTASSIUM CHLORIDE 10 MEQ SR TABLET PO ONE (14:00)
[2019-01-14] MEDS: KCL 40MEQ in NS 1000ML 1,000 ML IV SCH (14:52)
--- NOTE | 2019-01-14 17:43 | IPNPDOC ---
Text Note Date of Service The patient was seen on 01/14/19. NOTE Subjective: Patient does not have any complaints. He denies fever, chills, na usea, vomiting, shortness of breath, palpitations, diarrhea or dysuria Objective: General: NAD HEENT: Normocephalic, atraumatic. EOMI. No scleral icterus. Moist mucous membranes. No pharyngeal erythema or uvular deviation. Neck: No JVD, lymphadenopathy, or thyromegaly. Cardiac: RRR, Normal S1 and S2, No murmurs, gallops, rubs. Pulm: Clear to auscultation b/l. No wheezing, rhonchi Abd: Bowel Sounds present. Nontender, nondistended, ostomy is in place. Ext: AKA on the left, RLE is absent up to the level of the hip. Neuro: Strength +5/5 BUE, sensation intact in bilateral UE CN 2-12 intact. A/p Patient is 28 years old male with past mental history of AKA on the left, colostomy present hospital after syncope. Patient did have 3 syncope episodes for past 2 days. Each episode was associated with body shakiness and postural confusion. Patient stated that he lost his consciousness suddenly without prodrome Syncope with seizure like activity Unclear etiology for now On the admission patient did not have any profound electrolytes abnormalities Head CAT scan was negative Orthostatic vital signs monitor Telemetry shows normal sinus rhythm EKG, EEG, echo pending Appreciate/agree with neurologist consult #. Nausea/vomiting PPI by mouth Antinausea medication VS,Fishbone, I+O VS, Fishbone, I+O Laboratory Tests 01/13/19 19:49 Red Blood Count 4.67, Mean Corpuscular Volume 82.7, Mean Corpuscular Hemoglobin 28.5, Mean Corpuscular Hemoglobin Concent 34.5, Red Cell Distribution Width 12.3, Neutrophils (%) (Auto) 62.5, Lymphocytes (%) (Auto) 25.5, Monocytes (%) (Auto) 9.3 H, Eosinophils (%) (Auto) 1.3, Basophils (%) (Auto) 0.7, Neutrophils # (Auto) 4.7, Lymphocytes # (Auto) 1.9, Monocytes # (Auto) 0.7, Eosinophils # (Auto) 0.1, Basophils # (Auto) 0.1, Calcium Level 8.5, Total Creatine Kinase 109 01/14/19 06:00 Red Blood Count 4.43, Mean Corpuscular Volume 81.9, Mean Corpuscular Hemoglobin 28.2, Mean Corpuscular Hemoglobin Concent 34.4, Red Cell Distribution Width 12.4, Calcium Level 8.3 L, Aspartate Amino Transf (AST/SGOT) 12, Alanine Aminotransferase (ALT/SGPT) 18, Alkaline Phosphatase 40 L, Total Bilirubin 0.6, Total Protein 6.8, Albumin 3.4 Vital Signs Date Time Temp Pulse Resp B/P (MAP) Pulse Ox O2 Delivery O2 Flow Rate FiO2 01/14/19 14:00 97.6 91 18 140/86 (104) 90 01/14/19 00:00 Room Air I&O- Last 24 Hours up to 6 AM 01/14/19 06:00 Intake Total 1480 ml Output Total 450 ml Balance 1030 ml MYAH BURGESS DO Jan 14, 2019 17:43
--- NOTE | 2019-01-14 21:17 | ECGEPIP ---
[facility] - ED Test Date: 2019-01-13 Pat Name: KLAUDIA ALLEN Department: Room: [place] [address] Gender: Male Cat [employer] Dog Bather: cindy : 1990 Requested By: MAUREEN Lawson Order Number: [id number] Reading MD: Kamilla Gutierrez Measurements Intervals [place] Rate: 73 P: 16 MI: 196 QRS: -83 QRSD: 96 T: 13 QT: 401 QTc: 443 Interpretive Statements SINUS RHYTHM LEFT ANTERIOR FASCICULAR BLOCK NSTTW abnormalities POSSIBLE ANTERIOR MYOCARDIAL INFARCTION, OF INDETERMINATE AGE DECREASED RATE 01/12/19 Electronically Signed on 01-14-2019 21:16:46 EDT by Kamilla Gutierrez
[2019-01-14 22:00] VITALS: BP 108/60
--- NOTE | 2019-01-14 23:41 | ECHO ---
DATE OF PROCEDURE: 01/14/2019 Date of : 1990 Age: 28 Gender: Male. Height: 69 inches Weight: 209 pounds Body surface area: 2.11 meters squared Inpatient: [address] [facility], room 4230 REFERRING PHYSICIAN: Dr. Andrew Garcia INDICATION: Syncope. MEASUREMENTS: 2D Measurements: RV: 3.7 cm LV: 4.9 cm Septum: 1.1 cm Posterior wall: 1.1 cm Aortic root: 3.1 cm LA: 3.9 cm LVEF: 75% Doppler Measurements: AV: 1.19 meters per second LVOT: 1.05 meters per second LVOT diameter: 2.2 cm MV-E: 69, A: 56, EA ratio: 1.2 Early mitral deceleration time: 165 milliseconds E prime: 12, A prime: 9.5, E/E prime ratio: 5.8 PV: 0.8 meters per second Pulmonary artery acceleration time: 120 milliseconds PASP: 27 mmHg IVC: Not well visualized. COMMENTS: Normal sinus rhythm without intraventricular conductance disturbance. Somewhat challenging study in light of the patient's body habitus but diagnostically useful information was still obtained. Normal left ventricular size, wall thickness and hyperkinetic wall motion. Left atrial size upper limits of normal with normal Doppler assessment of left ventricular (LV) diastolic function and estimated mean left atrial pressure. Normal right heart chamber sizes and motion and estimated pulmonary arterial pressure. Normal appearing and functioning valvular structures. Normal aortic root size. No apparent intracardiac mass or pericardial effusion. No apparent cardiac structural or functional abnormality to account for the patient's syncopal spell.
--- NOTE | 2019-01-15 00:21 | EEG ---
DATE OF PROCEDURE: 01/14/2019 REFERRING PHYSICIAN: Dr. Shannan Macias DIAGNOSIS: Syncope, seizure-like activity. EEG NUMBER: [id number] HISTORY: The patient is a 28-year-old man who presented to [facility] due to unwitnessed syncope. The patient has increased confusion and feels dizzy. He was discharged home on January 13, 2019. He again became dizzy when he went home. According to girlfriend, he was in the room and went limp and started shaking and drooling on the floor. He was passed out for 6 minutes. He vomited. This EEG was done to rule out epileptic potential. He is currently taking Lovenox, Protonix, Compazine, etc. TECHNICAL DESCRIPTION: This digital EEG was recorded by 21 scalp, ear and two EKG electrodes and was reviewed in bipolar and referential montages following reformatting in 10-20 international electrode placement system. INTERPRETATION: The patient was noted to be in awake and drowsy states during this EEG. Resting awake background rhythm consisted of 10 Hz alpha activity measuring 15-40 microvolts in amplitude which was symmetric and reactive to eye opening. Anteriorly low voltage and mixed frequency activity was noted. Stage I and II sleep were reviewed and were symmetric bilaterally. Attenuation of posterior dominant rhythm was seen during transition into drowsiness. Hyperventilation could not be performed. Photic stimulation remained unremarkable. EKG revealed normal sinus rhythm. No focal, lateralizing or epileptiform abnormalities were seen. No clinical or electrographic seizures were recorded. CONCLUSION: This EEG in awake, drowsy states, stage I and II sleep is within normal limits.
[2019-01-15 06:00] VITALS: BP 116/73
[2019-01-15 06:11] LABS: HEMATOCRIT 37.3 % (42.0-52.0); HEMOGLOBIN 12.9 g/dl (13.5-17.5); MEAN CORPUSCULAR HEMOGLOBIN 28.4 pg (27.0-33.0); MEAN CORPUSCULAR HGB CONC 34.6 g/dl (32.0-36.5); PLATELET COUNT, AUTOMATED 236 10^3/uL (150-450); RED BLOOD COUNT 4.55 10^6/uL (4.30-6.10); WHITE BLOOD COUNT 5.8 10^3/uL (4.0-10.0)
--- NOTE | 2019-01-15 06:15 | ECGEPIP ---
[facility] Test Date: 2019-01-14 Pat Name: KLAUDIA ALLEN Department: Room: [place] [address] Gender: Male Chaplain: BARBRA : 1990 Requested By: MYAH BURGESS Order Number: [id number] Reading MD: Geni Baxter Measurements Intervals [place] Rate: 87 P: 13 WA: 188 QRS: 240 QRSD: 107 T: 16 QT: 372 QTc: 450 Interpretive Statements SINUS RHYTHM BORDERLINE RIGHT AXIS Left anterior fascicular block NO LONGER PRESENT PATTERN CONSISTENT WITH PULMONARY DISEASE LOW VOLTAGE LIMB LEADS ANT ST T WAVE ABN PERSISTS PRWP Electronically Signed on 01-15-2019 6:14:52 EDT by Geni Baxter
[2019-01-15 06:48] LABS: BLOOD UREA NITROGEN 5 MG/DL (7-18); CALCIUM LEVEL 8.7 MG/DL (8.5-10.1); CARBON DIOXIDE LEVEL 23 MEQ/L (21-32); CHLORIDE LEVEL 111 MEQ/L (98-107); CREATININE FOR GFR 0.54 MG/DL (0.70-1.30); GLOMERULAR FILTRATION RATE > 60.0 (>60); GLUCOSE, FASTING 88 MG/DL (70-100); MAGNESIUM LEVEL 2.1 MG/DL (1.8-2.4); POTASSIUM SERUM 3.9 MEQ/L (3.5-5.1); SODIUM LEVEL 141 MEQ/L (136-145)
[2019-01-15] MEDS: ENOXAPARIN 40 MG/0.4 ML SYRINGE (J1650) SC SCH (08:53)
[2019-01-15] MEDS ORDERED: PROC5TA PO (11:51)
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
== END 2019-01-15 12:16 | disposition home or self-care (01) ==
LOC: M ED 18:56 → M ED INP 18:57 → M MSPAV 01-14 00:23
PROVIDERS: ADMIT Internal Medicine Nephrology; ATTEND Internal Medicine
DX: R55 Syncope and collapse (principal); R25.8 Other abnormal involuntary movements; R11.2 Nausea with vomiting, unspecified; Z87.820 Personal history of traumatic brain injury; Z89.611 Acquired absence of right leg above knee; Z93.3 Colostomy status
CPT/HCPCS: 36415; 80048; 80053; 82550; 82553; 83605; 83735; 84146; 84443; 84484; 85025; 85027; 93005; 93041; 93306; 94760; 95819; 96372; 96374; 96375; 96376; 97161; 97165; 99285; C9113; G0378; J1650

== ENCOUNTER → 2019-02-22 | Outpatient (REF) | payer MEDICARE, OTHER ==
[~2019-02-22] MED LIST changes: +PROC5TA PO; +SERT-141 PO; +VITA100066 PO
[2019-02-22 14:22] LABS: BASO # 0.1 10^3/uL (0.0-0.2); BASO % 1.2 % (0.0-1.0); EOS # 0.2 10^3/uL (0.0-0.5); EOS % 4.1 % (0.0-3.0); HEMATOCRIT 40.1 % (42.0-52.0); HEMOGLOBIN 13.7 g/dl (13.5-17.5); LYMPH # 1.5 10^3/uL (1.5-5.0); LYMPH % 25.4 % (24.0-44.0); MEAN CORPUSCULAR HEMOGLOBIN 28.8 pg (27.0-33.0); MEAN CORPUSCULAR HGB CONC 34.2 g/dl (32.0-36.5); MEAN CORPUSCULAR VOLUME 84.2 fl (80.0-96.0); MONO # 0.6 10^3/uL (0.0-0.8); MONO % 9.3 % (0.0-5.0); NEUTROPHILS # 3.5 10^3/uL (1.5-8.5); NEUTROPHILS % 59.3 % (36.0-66.0); PLATELET COUNT, AUTOMATED 273 10^3/uL (150-450); RED BLOOD COUNT 4.76 10^6/uL (4.30-6.10); WHITE BLOOD COUNT 5.9 10^3/uL (4.0-10.0)
[2019-02-22 14:49] LABS: ERYTHROCYTE SEDIMENTATION RATE 12 mm/hr (0-15)
[2019-02-22 15:00] LABS: ALBUMIN 3.6 GM/DL (3.2-5.2); ALT/SGPT 50 U/L (12-78); BILIRUBIN,TOTAL 0.5 MG/DL (0.2-1.0); BLOOD UREA NITROGEN 12 MG/DL (7-18); CALCIUM LEVEL 8.8 MG/DL (8.5-10.1); CARBON DIOXIDE LEVEL 23 MEQ/L (21-32); CHLORIDE LEVEL 109 MEQ/L (98-107); CREATININE FOR GFR 0.58 MG/DL (0.70-1.30); GLOMERULAR FILTRATION RATE > 60.0 (>60); GLUCOSE, FASTING 108 MG/DL (70-100); POTASSIUM SERUM 3.8 MEQ/L (3.5-5.1); RHEUMATOID FACTOR QUANT < 10.0 IU/ML (<15.0); SODIUM LEVEL 141 MEQ/L (136-145); TOTAL PROTEIN 6.8 GM/DL (6.4-8.2)
[2019-02-24 08:19] LABS: ANTINUCLEAR ANTIBODIES DIRECT Negative (Negative)
== END ==
LOC: M LABNEURO 10:15
PROVIDERS: ATTEND Psychiatry & Neurology Neurology
DX: R55 Syncope and collapse (principal); R51 Headache

== ENCOUNTER → 2019-03-11 | Outpatient (CLI) | payer MEDICARE, OTHER ==
[~2019-03-11] MED LIST changes: -SERT-141 PO; -VITA100066 PO
--- NOTE | 2019-03-11 12:59 | REP ---
AP and lateral views of the skull were obtained to assess for metallic foreign body prior to MRI. No radiopaque foreign bodies are noted. Electronically Signed by Tonio Guthrie DO 03/11/2019 04:55 P
--- NOTE | 2019-03-11 13:47 | REP ---
REASON: Assess for foreign body. Metallic clips are seen about the abdomen and pelvis. There is evidence of previous dearticulation of the right lower extremity with marked chronic changes seen involving the right hemipelvis. Additional AP view of the left hip was obtained showing hip joint space narrowing, but no fracture, dislocation, or subluxation. Electronically Signed by Tonio Guthrie DO 03/11/2019 04:56 P
--- NOTE | 2019-03-11 13:48 | REP ---
REASON FOR EXAM: Assess for metallic radiodensities. COMPARISON EXAM: 01/12/2019 a portable exam and the latest prior. There is mild cardiomegaly. The lung vargas are clear and stable. The pleural angles are sharp. The osseous structures are within normal limits. There is no plain radiographic evidence of a radiopaque foreign body. Electronically Signed by Tonio Guthrie DO 03/11/2019 04:56 P
--- NOTE | 2019-03-11 13:50 | REP ---
REASON: Assess for foreign body. Marked chronic changes are seen involving the radius with exuberant bone formation about the proximal radius with an expansile exostosis along the endosteal scalloping seen involving the proximal and distal radius. Etiology uncertain. Chronic changes also seen involving the wrist. No evidence of a radiopaque foreign body. Two views of the left forearm were obtained. FINDINGS: No acute fracture or destructive osseous lesion. There is no evidence of a radiopaque foreign body. Electronically Signed by Tonio Guthrie DO 03/11/2019 04:56 P
--- NOTE | 2019-03-11 14:04 | REP ---
REASON: Assess for foreign body. Multiple surgical clips are seen in the right mid abdomen, exact etiology uncertain, possibly secondary to cholecystectomy or even appendectomy. This needs to be correlated clinically. Multiple surgical clips are also seen in the left upper quadrant of uncertain etiology. There is a single clip seen in the midline at the level of L4. No other metallic radiodensities are evident. The intestinal gas pattern is nonspecific. There is a colostomy on the left. Electronically Signed by Tonio Guthrie DO 03/11/2019 04:56 P
--- NOTE | 2019-03-11 14:10 | REP ---
AP and lateral views were obtained bilaterally to assess for metallic foreign body. Chronic flexion contracture is suspected involving all digits of the right hand to varying degrees. This needs to be correlated clinically as all digits are flexed on both views. There is no evidence of a radiopaque foreign body. Two view of the left hand show no evidence of a radiopaque foreign body. The joint spaces are symmetric and well maintained. There is no fracture. Electronically Signed by Tonio Guthrie DO 03/11/2019 04:56 P
== END ==
LOC: M RAD 10:55
PROVIDERS: ATTEND Psychiatry & Neurology Neurology
DX: T14.8XXA Other injury of unspecified body region, initial encounter (principal); X58.XXXA Exposure to other specified factors, initial encounter; Y92.89 Other specified places as the place of occurrence of the external cause

== ENCOUNTER → 2019-04-08 | Outpatient (CLI) | payer MEDICARE, OTHER ==
--- NOTE | 2019-04-08 15:20 | REP ---
Gastric emptying nuclear scintigraphy: History: Vomiting. Technique: 1.1 mCi of technetium-99m sulfur colloid was ingested in two scrambled eggs and 6 ounces of water and sequential anterior and posterior images are acquired for an 89-minute imaging observation period. Regions of interest are drawn around the stomach to plot gastric emptying. Scintigraphic findings: Expected T1/2 is 90 minutes. 80 % emptying is observed in this patient during the 89-minute imaging observation period, for a calculated T1/2 in this patient of 57 minutes. Impression: Normal gastric emptying. Electronically Signed by Mike Singleton MD 04/08/2019 03:11 P
== END ==
LOC: M RAD 12:09
PROVIDERS: ATTEND Internal Medicine Gastroenterology
DX: R11.10 Vomiting, unspecified (principal)
CPT/HCPCS: 78264; A9541

== ENCOUNTER 2019-07-22 10:08 | Day surgery (SDC) | payer MEDICARE, OTHER ==
[~2019-07-22] VITALS: Ht 157.5 cm; Wt 108.9 kg
[~2019-07-22 10:08] MED LIST changes: +NS 1,000 ML IV ONE; +SERT-141 PO; +VITA100066 PO
[2019-07-22] MEDS ORDERED: propofoL 200 MG/20 ML VIAL As Ordered ONE (13:00)
[2019-07-22] MEDS ORDERED: LIDOCAINE 2% INJ 100 MG/5 ML SDV (FOR ANES.) As Ordered ONE (13:00)
--- NOTE | 2019-07-22 13:04 | ROOR ---
Patient Name: Crispin Winters Procedure Date: 07/22/2019 12:40 PM Date of : 1990 Age: 29 Room: [facility] Gender: Male Note Status: Finalized Procedure: Upper GI endoscopy Indications: Eructation, Regurgitation Providers: Angel ROMAN MD Referring MD: ALESSANDRO FRANCOIS MD Requesting Provider: Medicines: Monitored Anesthesia Care Complications: No immediate complications. Procedure: Pre-Anesthesia Assessment: - The heart rate, respiratory rate, oxygen saturations, blood pressure, adequacy of pulmonary ventilation, and response to care were monitored throughout the procedure. The Endoscope was introduced through the mouth, and advanced to the second part of duodenum. The upper GI endoscopy was accomplished without difficulty. The patient tolerated the procedure well. Findings: The esophagus was normal. Biopsies were taken with a cold forceps for histology. The stomach was normal. Biopsies were taken with a cold forceps for histology. The examined duodenum was normal. This was biopsied with a cold forceps for histology. The Z-line was variable and was found 39 cm from the incisors. This was biopsied with a cold forceps for histology. Impression: - Normal esophagus. Biopsied. - Z-line variable, 39 cm from the incisors. Biopsied. - Normal stomach. Biopsied. - Normal examined duodenum. Biopsied. Recommendation: - Observe patient's clinical course. - Telephone endoscopist for pathology results in 2 weeks. - Eat smaller, more frequent meals throughout the day. - Low fat diet. - Liquid/soft foods are tolerated better than solid foods. - Low fiber/well cooked vegetables are tolerated better than high fiber/fibrous foods/raw vegetables. - Avoid medications that inhibit gastric/intestinal motility such as narcotic medications. Angel Roman MD Angel ROMAN MD 07/22/2019 1:04:07 PM Electronically signed by Angel ROMAN MD Number of Addenda: 0 Note Initiated On: 07/22/2019 12:40 PM Estimated Blood Loss: Estimated blood loss: none.
[2019-07-22 13:25] VITALS: BP 128/69
== END 2019-07-22 13:40 | disposition home or self-care (01) ==
LOC: M OPP 10:08
PROVIDERS: ATTEND Internal Medicine Gastroenterology
DX: R14.2 Eructation (principal); R11.10 Vomiting, unspecified; D13.0 Benign neoplasm of esophagus; D13.2 Benign neoplasm of duodenum; K22.8 Other specified diseases of esophagus; F41.9 Anxiety disorder, unspecified; F32.9 Major depressive disorder, single episode, unspecified; F43.10 Post-traumatic stress disorder, unspecified; Z87.820 Personal history of traumatic brain injury; Z79.899 Other long term (current) drug therapy; Z80.1 Family history of malignant neoplasm of trachea, bronchus and lung; Z80.3 Family history of malignant neoplasm of breast; Z89.611 Acquired absence of right leg above knee; Z89.612 Acquired absence of left leg above knee

== ENCOUNTER 2020-03-28 14:43 | Emergency (ER) | payer MEDICARE, OTHER ==
[~2020-03-28 14:43] MED LIST changes: -NS 1,000 ML IV ONE; -PROC5TA PO; +PROC5TAB57 PO
[2020-03-28 16:00] LABS: HEMATOCRIT 46.7 % (42.0-52.0); HEMOGLOBIN 15.6 g/dl (13.5-17.5); MEAN CORPUSCULAR HEMOGLOBIN 27.4 pg (27.0-33.0); MEAN CORPUSCULAR HGB CONC 33.4 g/dl (32.0-36.5); MEAN CORPUSCULAR VOLUME 81.9 fl (80.0-96.0); PLATELET COUNT, AUTOMATED 320 10^3/uL (150-450); WHITE BLOOD COUNT 9.2 10^3/uL (4.0-10.0)
[2020-03-28 16:01] VITALS: BP 134/63
--- NOTE | 2020-03-28 16:19 | REP ---
INDICATION: truama. COMPARISON: January 12, 2019.. TECHNIQUE: Helical scanning is acquired. 5 mm axial images were reformatted. Coronal MPR images were generated. FINDINGS: Bone window settings demonstrate an intact bony calvarium. There is no evidence of skull fracture or incidental bony calvarial lesion. The visualized paranasal sinuses appear clear. No intraorbital abnormality is seen. On soft tissue window setting images; the lateral, third, and fourth ventricles are normal in size and position. Melara-white differentiation pattern is normal above and below the tentorium. There are is no evidence of intracranial hemorrhage. No mass, edema, infarction, or midline shift is seen. No extra-axial fluid collection is appreciated. IMPRESSION: Negative noncontrast head CT. <Electronically signed by Cesar Singleton > 03/28/20 1241
--- NOTE | 2020-03-28 16:20 | REP ---
INDICATION: truama. COMPARISON: None. TECHNIQUE: Helical scanning is acquired and overlapping 2 mm high resolution axial images were generated and reviewed at bone and soft tissue window settings. Coronal and sagittal multiplanar re-formations images are generated. FINDINGS: There is no evidence of cervical spine element fracture. No skull base fracture is seen. Cervical vertebral body heights are preserved. Alignment is normal. Facet joints are normally aligned bilaterally at each cervical level on multiplanar re-formations images. There is no evidence of intraspinal or paraspinal hematoma. No extra vertebral abnormality is seen. There is straightening and slight reversal of the normal cervical lordosis. A mild levoconvex curve is seen on the coronal multiplanar reformations images. IMPRESSION: Straightening, otherwise negative CT study of the cervical spine. No traumatic abnormality noted.. <Electronically signed by Cesar Singleton > 03/28/20 1037
[2020-03-28] MEDS ORDERED: NS 500 ML IV ONE (16:45)
--- NOTE | 2020-03-28 16:54 | ECGEPIP ---
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
== END 2020-03-28 17:19 | disposition home or self-care (01) ==
LOC: EDBD 14:43 → M ED 14:43
DX: R55 Syncope and collapse (principal); S00.81XA Abrasion of other part of head, initial encounter; W18.30XA Fall on same level, unspecified, initial encounter; Y92.89 Other specified places as the place of occurrence of the external cause; Z79.899 Other long term (current) drug therapy

== ENCOUNTER 2021-07-07 17:29 | Emergency (ER) | payer MEDICARE, OTHER ==
[2021-07-07] MEDS ORDERED: KETOROLAC 30 MG/ML 1ML VIAL IV ONE (19:15)
[2021-07-07] MEDS ORDERED: NS 1,000 ML IV ONE (19:15)
[2021-07-07 21:17] LABS: BASO # 0.1 10^3/uL (0.0-0.2); BASO % 0.5 % (0.0-1.0); EOS # 0.1 10^3/uL (0.0-0.5); EOS % 0.5 % (0.0-3.0); HEMATOCRIT 46.7 % (42.0-52.0); HEMOGLOBIN 16.5 g/dl (13.5-17.5); LYMPH # 1.6 10^3/uL (1.5-5.0); MEAN CORPUSCULAR HEMOGLOBIN 28.8 pg (27.0-33.0); MEAN CORPUSCULAR HGB CONC 35.3 g/dl (32.0-36.5); MEAN CORPUSCULAR VOLUME 81.5 fl (80.0-96.0); MONO # 1.2 10^3/uL (0.0-0.8); MONO % 10.8 % (2.0-8.0); NEUTROPHILS # 8.3 10^3/uL (1.5-8.5); NEUTROPHILS % 73.7 % (36.0-66.0); PLATELET COUNT, AUTOMATED 304 10^3/uL (150-450); RED BLOOD COUNT 5.73 10^6/uL (4.30-6.10); WHITE BLOOD COUNT 11.3 10^3/uL (4.0-10.0)
[2021-07-07 21:37] LABS: ERYTHROCYTE SEDIMENTATION RATE 20 mm/hr (0-15)
[2021-07-07] MEDS ORDERED: VANCOMYCIN HCL 2,000 MG in IV FLUID PLACE HOLDER 1 EA IV ONE (21:45)
[2021-07-07] MEDS ORDERED: VANCOMYCIN HCL 1,000 MG, VIAL MATE ADAPTER 1 EACH in NS 250 ML IV ONE ×2 (22:00→23:00)
[2021-07-07 22:20] LABS: BLOOD UREA NITROGEN 9 MG/DL (7-18); CALCIUM LEVEL 8.7 MG/DL (8.5-10.1); CARBON DIOXIDE LEVEL 15 MEQ/L (21-32); CHLORIDE LEVEL 111 MEQ/L (98-107); CREATININE FOR GFR 0.55 MG/DL (0.70-1.30); GLOMERULAR FILTRATION RATE > 60.0 (>60); GLUCOSE, FASTING 71 MG/DL (70-100); POTASSIUM SERUM 3.7 MEQ/L (3.5-5.1); SODIUM LEVEL 140 MEQ/L (136-145)
[2021-07-08] MEDS ORDERED: DOXY-443 PO (00:21)
[2021-07-08 00:34] VITALS: BP 135/86
== END 2021-07-08 00:37 | disposition home or self-care (01) ==
LOC: M ED 17:29
DX: L03.311 Cellulitis of abdominal wall (principal)
CPT/HCPCS: 36415; 80048; 83605; 84145; 85025; 85652; 86140; 87040; 87798; 96361; 96365; 96367; 96375; 99284; J1885; J3370

== ENCOUNTER 2021-08-03 09:06 | Inpatient (IN) | payer MEDICARE, OTHER ==
[~2021-08-03 09:06] MED LIST changes: +DOXY-443 PO
[2021-08-03 10:37] LABS: BASO % 0.4 % (0.0-1.0); EOS % 0.2 % (0.0-3.0); HEMATOCRIT 45.2 % (42.0-52.0); HEMOGLOBIN 15.7 g/dl (13.5-17.5); LYMPH # 0.5 10^3/uL (1.5-5.0); LYMPH % 4.8 % (24.0-44.0); MEAN CORPUSCULAR HEMOGLOBIN 28.7 pg (27.0-33.0); MEAN CORPUSCULAR HGB CONC 34.7 g/dl (32.0-36.5); MEAN CORPUSCULAR VOLUME 82.6 fl (80.0-96.0); MONO # 0.8 10^3/uL (0.0-0.8); MONO % 7.3 % (2.0-8.0); NEUTROPHILS # 9.7 10^3/uL (1.5-8.5); NEUTROPHILS % 86.8 % (36.0-66.0); PLATELET COUNT, AUTOMATED 234 10^3/uL (150-450); RED BLOOD COUNT 5.47 10^6/uL (4.30-6.10); WHITE BLOOD COUNT 11.2 10^3/uL (4.0-10.0)
[2021-08-03 11:12] LABS: ALBUMIN 4.1 GM/DL (3.2-5.2); ALT/SGPT 35 U/L (12-78); BLOOD UREA NITROGEN 8 MG/DL (7-18); C REACTIVE PROTEIN QUANTITATIV 2.47 MG/DL (0.00-0.30); CALCIUM LEVEL 8.9 MG/DL (8.5-10.1); CARBON DIOXIDE LEVEL 23 MEQ/L (21-32); CHLORIDE LEVEL 107 MEQ/L (98-107); CREATININE FOR GFR 0.58 MG/DL (0.70-1.30); GLOMERULAR FILTRATION RATE > 60.0 (>60); GLUCOSE, FASTING 85 MG/DL (70-100); POTASSIUM SERUM 4.2 MEQ/L (3.5-5.1); SODIUM LEVEL 138 MEQ/L (136-145); TOTAL PROTEIN 7.5 GM/DL (6.4-8.2)
[2021-08-03] MEDS ORDERED: ONDANSETRON 4MG/2ML VIAL IV ONE (11:20)
[2021-08-03] MEDS ORDERED: NS 3,000 ML in IV 1 EA IV ONE (11:20)
[2021-08-03] MEDS ORDERED: VANCOMYCIN HCL 2,000 MG in D5W 500 ML IV ONE (11:25)
[2021-08-03] MEDS ORDERED: VANCOMYCIN HCL 1,000 MG, VIAL MATE ADAPTER 1 EACH in NS 250 ML IV ONE ×6 (11:25)
[2021-08-03] MEDS ORDERED: ISOVUE-370 76% 100ML VIAL As Ordered ONE (11:29)
[2021-08-03] MEDS ORDERED: diphenhydrAMINE 50MG/ML VIAL (J1200) IV STA (13:11)
[2021-08-03] MEDS ORDERED: methylPREDNISolone 125MG 2ML VIAL IV ONE (13:15)
[2021-08-03] MEDS ORDERED: methylPREDNISolone 40MG 1ML VIAL IV ONE (13:15)
[2021-08-03] MEDS ORDERED: ACETAMINOPHEN TAB 650MG DOSE (2X325MG) PO PRN (14:35)
[2021-08-03] MEDS ORDERED: VITA100093 PO (14:39)
[2021-08-03] MEDS ORDERED: HOME MED LIST COMPLETE! XX SCH (14:45)
[2021-08-03 16:30] VITALS: BP 115/69
[2021-08-03 18:00] VITALS: BP 105/63
[2021-08-03] MEDS: NS 1,000 ML IV SCH (18:14)
[2021-08-03 20:00] VITALS: BP 105/63
[2021-08-03] MEDS: VANCOMYCIN HCL 1,000 MG, VIAL MATE ADAPTER 1 EACH in NS 250 ML IV SCH (21:35)
[2021-08-03 22:00] VITALS: BP 120/60
[2021-08-04 02:00] VITALS: BP 110/62
[2021-08-04] MEDS: NS 1,000 ML IV SCH (03:58)
[2021-08-04] MEDS: VANCOMYCIN HCL 1,000 MG, VIAL MATE ADAPTER 1 EACH in NS 250 ML IV SCH (05:15)
[2021-08-04 06:00] VITALS: BP 107/59
[2021-08-04 06:24] LABS: HEMOGLOBIN 12.8 g/dl (13.5-17.5); MEAN CORPUSCULAR HEMOGLOBIN 28.8 pg (27.0-33.0); MEAN CORPUSCULAR HGB CONC 34.6 g/dl (32.0-36.5); MEAN CORPUSCULAR VOLUME 83.3 fl (80.0-96.0); PLATELET COUNT, AUTOMATED 184 10^3/uL (150-450); RED BLOOD COUNT 4.44 10^6/uL (4.30-6.10); WHITE BLOOD COUNT 6.4 10^3/uL (4.0-10.0)
[2021-08-04 06:54] LABS: BLOOD UREA NITROGEN 6 MG/DL (7-18); CARBON DIOXIDE LEVEL 21 MEQ/L (21-32); CHLORIDE LEVEL 113 MEQ/L (98-107); CREATININE FOR GFR 0.45 MG/DL (0.70-1.30); GLOMERULAR FILTRATION RATE > 60.0 (>60); GLUCOSE, FASTING 88 MG/DL (70-100); POTASSIUM SERUM 3.6 MEQ/L (3.5-5.1); SODIUM LEVEL 142 MEQ/L (136-145)
[2021-08-04] MEDS: ENOXAPARIN 40MG/0.4ML SYRINGE (J1650 PER 10MG) SC SCH (08:32)
[2021-08-04 10:00] VITALS: BP 106/61
[2021-08-04] MEDS ORDERED: cefTRIAXone SOD 2 GM in D5W MINI-BAG PLUS 50 ML IV SCH (10:00)
[2021-08-04 14:00] VITALS: BP 117/67
[2021-08-04 22:00] VITALS: BP 105/58
[2021-08-05 02:00] VITALS: BP 107/59
[2021-08-05 06:00] VITALS: BP 105/59
[2021-08-05 06:25] LABS: HEMATOCRIT 37.1 % (42.0-52.0); MEAN CORPUSCULAR HEMOGLOBIN 29.1 pg (27.0-33.0); PLATELET COUNT, AUTOMATED 199 10^3/uL (150-450); RED BLOOD COUNT 4.47 10^6/uL (4.30-6.10)
[2021-08-05 06:50] LABS: BLOOD UREA NITROGEN 5 MG/DL (7-18); CALCIUM LEVEL 7.9 MG/DL (8.5-10.1); CARBON DIOXIDE LEVEL 25 MEQ/L (21-32); CHLORIDE LEVEL 113 MEQ/L (98-107); CREATININE FOR GFR 0.47 MG/DL (0.70-1.30); GLOMERULAR FILTRATION RATE > 60.0 (>60); GLUCOSE, FASTING 86 MG/DL (70-100); POTASSIUM SERUM 3.7 MEQ/L (3.5-5.1); SODIUM LEVEL 143 MEQ/L (136-145)
[2021-08-05] MEDS ORDERED: CEPH500C PO (08:57)
[2021-08-05] MEDS ORDERED: CVS1CAP2 PO (08:57)
[2021-08-05] MEDS: CEPHALEXIN 500 MG CAP PO SCH ×2 (09:04→12:15)
[2021-08-05] MEDS: ENOXAPARIN 40MG/0.4ML SYRINGE (J1650 PER 10MG) SC SCH (09:05)
[2021-08-05 09:55] VITALS: BP 117/67
== END 2021-08-05 12:55 | disposition home or self-care (01) | DRG 872 ==
LOC: M ED 09:06 → M ED INP 14:32 → ENRESERV 15:05 → M MSPAV 16:34
PROVIDERS: ADMIT Internal Medicine; ATTEND Internal Medicine
DX: A41.9 Sepsis, unspecified organism (principal); L03.111 Cellulitis of right axilla; Z89.612 Acquired absence of left leg above knee; Z91.82 Personal history of military deployment; Z93.3 Colostomy status; Z99.3 Dependence on wheelchair; Z20.822 Contact with and (suspected) exposure to COVID-19; Z88.1 Allergy status to other antibiotic agents; Z89.611 Acquired absence of right leg above knee

== ENCOUNTER 2022-03-31 16:12 | Emergency (ER) | payer MEDICARE, OTHER ==
[~2022-03-31] VITALS: Ht 175.3 cm; Wt 90.9 kg
[~2022-03-31 16:12] MED LIST changes: +CEPH500C PO; +CVS1CAP2 PO; +VITA100093 PO
[2022-03-31 17:57] LABS: BASO # 0.1 10^3/uL (0.0-0.2); BASO % 0.6 % (0.0-1.0); EOS # 0.2 10^3/uL (0.0-0.5); HEMOGLOBIN 13.2 g/dl (13.5-17.5); LYMPH # 1.4 10^3/uL (1.5-5.0); LYMPH % 17.3 % (24.0-44.0); MEAN CORPUSCULAR HEMOGLOBIN 29.7 pg (27.0-33.0); MEAN CORPUSCULAR HGB CONC 33.8 g/dl (32.0-36.5); MEAN CORPUSCULAR VOLUME 87.8 fl (80.0-96.0); MONO % 12.4 % (2.0-8.0); NEUTROPHILS # 5.5 10^3/uL (1.5-8.5); NEUTROPHILS % 67.6 % (36.0-66.0); PLATELET COUNT, AUTOMATED 208 10^3/uL (150-450); RED BLOOD COUNT 4.44 10^6/uL (4.30-6.10); WHITE BLOOD COUNT 8.1 10^3/uL (4.0-10.0)
[2022-03-31 18:32] LABS: ERYTHROCYTE SEDIMENTATION RATE 45 mm/hr (0-15)
[2022-03-31 18:33] LABS: BLOOD UREA NITROGEN 12 MG/DL (7-18); CALCIUM LEVEL 8.1 MG/DL (8.5-10.1); CARBON DIOXIDE LEVEL 23 MEQ/L (21-32); CHLORIDE LEVEL 109 MEQ/L (98-107); CREATININE FOR GFR 0.42 MG/DL (0.70-1.30); GLOMERULAR FILTRATION RATE > 60.0 (>60); GLUCOSE, FASTING 93 MG/DL (70-100); POTASSIUM SERUM 3.5 MEQ/L (3.5-5.1); SODIUM LEVEL 140 MEQ/L (136-145)
[2022-03-31] MEDS ORDERED: cefTRIAXone SOD 1 GM in D5W MINI-BAG PLUS 50 ML IV ONE (18:40)
[2022-03-31] MEDS ORDERED: DOXY-443 PO (19:14)
[2022-03-31 20:26] VITALS: BP 121/68
== END 2022-03-31 20:29 | disposition home or self-care (01) ==
LOC: M ED 16:12
DX: L03.311 Cellulitis of abdominal wall (principal); K21.9 Gastro-esophageal reflux disease without esophagitis; Z88.1 Allergy status to other antibiotic agents; Z79.899 Other long term (current) drug therapy
CPT/HCPCS: 36415; 80048; 83605; 85025; 85652; 86140; 87040; 99283; J0696

== ENCOUNTER → 2022-06-17 | Outpatient (REF) | payer MEDICARE, OTHER | LOC: M SFHCPLAZ 13:08 | PROVIDERS: ATTEND Internal Medicine Infectious Disease | DX: L03.90 Cellulitis, unspecified (principal) ==

== ENCOUNTER → 2023-09-02 | Outpatient (CLI) | payer MEDICARE, OTHER ==
[2023-09-02 17:13] LABS: BASO # 0.1 10^3/uL (0.0-0.2); BASO % 1.1 % (0.0-1.0); EOS # 0.5 10^3/uL (0.0-0.5); EOS % 6.6 % (0.0-3.0); HEMOGLOBIN 14.3 g/dl (13.5-17.5); LYMPH # 1.9 10^3/uL (1.5-5.0); LYMPH % 26.4 % (24.0-44.0); MEAN CORPUSCULAR HEMOGLOBIN 29.4 pg (27.0-33.0); MEAN CORPUSCULAR VOLUME 86.2 fl (80.0-96.0); MONO # 0.7 10^3/uL (0.0-0.8); MONO % 9.4 % (2.0-8.0); NEUTROPHILS % 55.9 % (36.0-66.0); PLATELET COUNT, AUTOMATED 265 10^3/uL (150-450); RED BLOOD COUNT 4.87 10^6/uL (4.30-6.10); WHITE BLOOD COUNT 7.1 10^3/uL (4.0-10.0)
[2023-09-02 17:45] LABS: C REACTIVE PROTEIN QUANTITATIV < 0.40 MG/DL (<1.0)
[2023-09-02 17:46] LABS: ALBUMIN 3.4 G/DL (3.2-5.2); ALKALINE PHOSPHATASE 55 U/L (46-116); ALT/SGPT 32 U/L (7.0-40); AST/SGOT 21 U/L (<34); BILIRUBIN,TOTAL 0.5 MG/DL (0.3-1.2); BLOOD UREA NITROGEN 9 MG/DL (9-23); CALCIUM LEVEL 8.9 MG/DL (8.5-10.1); CARBON DIOXIDE LEVEL 27 MMOL/L (20-31); CHLORIDE LEVEL 107 MMOL/L (98-107); CHOLESTEROL LEVEL 188 MG/DL (<200); CHOLESTEROL RISK RATIO 4.49 (<5); CREATININE FOR GFR 0.48 MG/DL (0.70-1.30); GLOMERULAR FILTRATION RATE > 60.0 (>60); GLUCOSE, FASTING 87 MG/DL (60-100); HDL CHOLESTEROL 41.8 MG/DL (>40); LDL CHOLESTEROL 112.2 MG/DL (<100); NON-HDL-C 146.2 MG/DL; POTASSIUM SERUM 4.1 MMOL/L (3.5-5.1); SODIUM LEVEL 140 MMOL/L (136-145); TOTAL PROTEIN 6.7 G/DL (5.7-8.2); TRIGLYCERIDES LEVEL 170 MG/DL (<150)
== END ==
LOC: M PLALAB 12:17
PROVIDERS: ATTEND Internal Medicine Infectious Disease
DX: L03.90 Cellulitis, unspecified (principal); Z13.220 Encounter for screening for lipoid disorders; Z79.899 Other long term (current) drug therapy

== ENCOUNTER 2024-09-11 10:59 | Emergency (ER) | payer MEDICARE, OTHER ==
[~2024-09-11 10:59] MED LIST changes: +DOXY-441 PO; -DOXY-443 PO; +ONDA-282 PO; -ONDA4TAB6 PO
[2024-09-11] MEDS ORDERED: CEPH500C PO (11:45)
[2024-09-11 11:54] VITALS: BP 142/86; TEMP 98.1; O2SAT 95
== END 2024-09-11 12:01 | disposition home or self-care (01) ==
LOC: M ED 10:59
DX: L03.311 Cellulitis of abdominal wall (principal); E78.5 Hyperlipidemia, unspecified; Z87.891 Personal history of nicotine dependence; Z88.1 Allergy status to other antibiotic agents; Z79.2 Long term (current) use of antibiotics

== ENCOUNTER 2025-05-06 19:41 | Emergency (ER) | payer MEDICARE, OTHER ==
[~2025-05-06 19:41] MED LIST changes: -ANDR1.62 TD; +PRAV10TA PO; -PRAV10TA4 PO; -PRAV40TA2 PO; +PRAV40TA85 PO; -PROC5TAB57 PO; +PROC5TAB81 PO; +TEST75GE10 TD
[2025-05-06 20:27] LABS: BASO # 0.1 10^3/uL (0.0-0.2); BASO % 1.3 % (0.0-1.0); EOS # 0.7 10^3/uL (0.0-0.5); EOS % 7.7 % (0.0-3.0); LYMPH # 2.5 10^3/uL (1.5-5.0); LYMPH % 27.5 % (24.0-44.0); MONO # 1.0 10^3/uL (0.0-0.8); MONO % 10.3 % (2.0-8.0); NEUTROPHILS # 4.9 10^3/uL (1.5-8.5); NEUTROPHILS % 52.7 % (36.0-66.0); PLATELET COUNT, AUTOMATED 298 10^3/uL (150-450)
[2025-05-06 20:48] LABS: CK-MB VALUE MASS 1.3 NG/ML (<3.6)
[2025-05-06 20:49] LABS: CPK CREATINE PHOSPHOKINASE 133 U/L (46-171); MB/CK RELATIVE INDEX 0.97 (< OR =4)
[2025-05-06 20:50] LABS: CALCIUM LEVEL 9.0 MG/DL (8.5-10.1); CARBON DIOXIDE LEVEL 26 MMOL/L (20-31); CHLORIDE LEVEL 106 MMOL/L (98-107); CREATININE FOR GFR 0.56 MG/DL (0.70-1.30); GLOMERULAR FILTRATION RATE > 90.0 (>60); POTASSIUM SERUM 3.9 MMOL/L (3.5-5.1); SODIUM LEVEL 143 MMOL/L (136-145)
[2025-05-06] MEDS: NS (Normal Saline) 0.9% 1,000 ML IV ONE (21:14)
[2025-05-06] MEDS ORDERED: ISOVUE-370 76% 100 ML VIAL As Ordered ONE (21:14)
[2025-05-06] MEDS: IPRATROPIUM 0.5 MG/ALBUTEROL 2.5 MG INH SOL UD 3 ML NEB ONE (21:26)
[2025-05-06] MEDS: predniSONE 20 MG TAB PO ONE (23:50)
[2025-05-06] MEDS: ALBUTEROL 90 MCG/ACT 8 GM HFA INHALER INH ONE (23:51)
[2025-05-06 23:59] VITALS: BP 116/68; TEMP 98; O2SAT 98
== END 2025-05-07 00:01 | disposition home or self-care (01) ==
LOC: M ED 19:41
DX: J45.909 Unspecified asthma, uncomplicated (principal); I45.10 Unspecified right bundle-branch block; I28.8 Other diseases of pulmonary vessels; Z88.1 Allergy status to other antibiotic agents; Z79.2 Long term (current) use of antibiotics; Z79.899 Other long term (current) drug therapy
CPT/HCPCS: 71046; 71275; 80048; 82550; 82553; 84484; 85025; 87486; 87581; 87633; 87798; 93005; 94640; 96360; 96361; 99284; J7512; Q9967